=== PATIENT | female | born 1995 | race Caucasian/White ===

== ENCOUNTER 2023-01-06 17:38 | Emergency (ER) | payer OTHER, SELFPAY ==
--- NOTE | 2023-01-06 17:42 | ED_ITS ---
HPI - Ear Problem General Chief complaint: Ear Problems Stated complaint: Ear bud stuck in left ear Time Seen by Provider: 01/06/23 17:59 Source: patient and family Mode of arrival: ambulatory History of Present Illness HPI Narrative: 27-year-old female with a past medical history Autism c/o earbud stuck in left ear x 1 hour. States was wearing headphones and when pulled out 1 was stuck inside. denies pain, drainage from ear, fever, chills Complaint: foreign body Location: left ear Related Data Allergies Allergy/AdvReac Type Severity Reaction Status Date / Time No Known Allergies Allergy Verified 01/06/23 17:46 Review of Systems Review of Systems: Constitutional: No Fever, No Chills ENT/Mouth: + Ear FB, No Nasal Congestion, No sore throat, No Rhinorrhea, No Swallowing Difficulty Cardiovascular: No Chest Pain, No SOB Respiratory: No Cough, No Sputum Gastrointestinal: No Nausea, No Vomiting, No Diarrhea, No Constipation, No Abdominal pain Musculoskeletal: No joint pain, No Myalgias, No Joint Swelling Skin: No Skin Lesions, No rash Neuro: No Weakness Yes all other systems are reviewed and are negative Constitutional: Constitutional: Reports as per [facility] Past Medical History Attestation statement: The following information was validated with the patient. Source: old records reviewed Physical Exam Vital Signs: Vital Signs: Last Vital Signs Pulse 93 01/06/23 17:43 Resp 18 01/06/23 17:43 BP 128/71 01/06/23 17:43 Pulse Ox 94 01/06/23 17:43 O2 Del Method Room Air 01/06/23 17:43 BMI result Body Mass Index 37.8 Const: General: cooperative, healthy appearing and no acute distress Orientation/consciousness: patient oriented x3 Limitations: no limitations HEENT: Other: +Ear bud noted to L ear. FB removed w/o complication. +Cerumen, TM WNL Head: Yes normal to inspection, Yes atraumatic, No Marc's sign and No raccoon eyes Ears: hearing grossly normal bilaterally, external ears normal and mastoids normal General nose exam: Normal external nose present Face and sinus: Yes normal facial exam Eyes: General: appearance normal, both eyes and all related structures EOM: EOMs intact bilaterally Neck: Neck: Yes normal visual inspection and Yes no meningeal signs Resp: Effort & Inspection: normal respiratory effort and no respiratory distress Cardio: Rate: regular rate Skin: Rashes: no rashes Wounds: no wounds Neuro: General: patient oriented x3, tone normal and no meningeal signs Gait exam (Neuro): Normal gait present Extrem: General: Yes normal to inspection Procedures FB Removal Ear Location: ear canal (L) Foreign Body Suspected: other plastic TM intact pre-procedure: yes Foreign Body Removed: yes Foreign Body Removal Technique: forceps Tympanic Membrane Intact Post Procedure: Yes Patient Tolerated Procedure: well Complications: none Medical Decision Making Medical Decision Making MDM Narrative: 27-year-old female with a past medical history Autism c/o earbud stuck in left ear x 1 hour. On exam vital signs stable, NAD, nontoxic appearing with physical exam as above with appreciable foreign body/here blood to left ear. Removed without complication with Beulah clamp. TM intact without erythema or bulging. Mastoid WNL. Low suspicion for acute otitis media or externa or mastoiditis Cerumen removed with ear curette Results discussed with patient including worrisome signs and symptoms and strict return precautions, and when to return to the emergency department. They verbalized understanding and feel safe for discharge at this time. Differential Diagnosis Differential Diagnoses: The differential diagnosis associated with the presentation includes As above External Record Review External record reviewed: Inpatient record, Office record, Outpatient record, Prior outpatient labs, Prior outpatient radiology, Primary care record and Outside ED record Tests considered The following testing was considered but not selected: As above Discharge Plan Discharge Clinical Impression: Ear foreign body Patient Disposition: Home, Self-Care Instructions: Ear Foreign Body (ED) Additional Instructions: ear bud was removed from your ear Avoid putting small things in the ears You may use 50% peroxide in 50% saline soaks at home to help with ear wax Referrals: Physician,Mecca J [Physician] -
[2023-01-06 17:43] VITALS: BP 128/71; PULSE 93; RESP 18; O2SAT 94; BMI 37.8
== END 2023-01-06 18:04 | disposition home or self-care (01) ==
LOC: HO.ED 18:01
PROVIDERS: Emergency Provider Emergency Medicine; PCP Internal Medicine
DX: T16.2XXA Foreign body in left ear, initial encounter (principal)
CPT/HCPCS: 69200; 99282; 99284

== ENCOUNTER 2023-01-10 10:52 | Emergency (ER) | payer OTHER, SELFPAY ==
[2023-01-10 10:58] VITALS: BP 135/78; PULSE 85; RESP 20; TEMP 36.8; O2SAT 100; BMI 37.0
--- NOTE | 2023-01-10 11:30 | PC.NURSE ---
psych screening not done as patient was not si/hi, this was an accidental overdose by the patient who has some intellectual disabilities.
--- NOTE | 2023-01-10 11:31 | ED.OVERDOSE ---
HPI - Overdose General Chief Complaint: Overdose Stated Complaint: Medication overdose? Time Seen by Provider: 01/10/23 11:00 Source: patient, family, RN notes reviewed and old records reviewed Mode of arrival: ambulatory History of Present Illness HPI Narrative: 27-year-old female with a past medical history of developmental delay presenting to ED with parents s/p accidental overdose on her home medications this morning. Patient was at her father's for the weekend, mother packed medications in separate bottle for easy administration however patient took entire bottle this morning which included Fluoxetine 10mg x4, Aldactone 50mg x 4, Doxycycline 100mg x8, and Hydroxyzine 10mg x 2. Father suspects patient took medications all at once around 09:45. Patient has been acting at baseline since instance. Denies lethargy, nausea/vomiting, abdominal pain, diarrhea. Patient admits this is accidental/does not remember incident MD complaint: accidental overdose Onset (ago): hour(s) Related Data Allergies Allergy/AdvReac Type Severity Reaction Status Date / Time No Known Allergies Allergy Verified 01/10/23 10:58 Review of Systems Review of Systems: Constitutional: No Fever, No Chills Cardiovascular: No Chest Pain, No SOB Respiratory: No Cough Gastrointestinal: No Nausea, No Vomiting, No Diarrhea, No Constipation, No Abdominal pain ROS limited due to patients baseline mental status Yes all other systems are reviewed and are negative Constitutional: Constitutional: Reports as per [facility] Past Medical History Attestation statement: The following information was validated with the patient. Source: old records reviewed Social History Social History Alcohol intake: never Smoked in Last 30 Days: No Use of substances other than those prescribed or required for medical reasons: No Advance Directives: No Advance Directives Information Provided: Yes Patient : No Physical Exam Vital Signs: Vital Signs: Last Vital Signs Temp 98.0 F 01/10/23 15:40 Pulse 74 01/10/23 15:40 Resp 16 01/10/23 15:40 BP 122/66 01/10/23 15:40 Pulse Ox 98 01/10/23 15:40 O2 Del Method Room Air 01/10/23 15:40 BMI result Body Mass Index 37.0 Const: General: cooperative, healthy appearing, no acute distress, alert and awake Limitations: no limitations HEENT: Head: Yes normal to inspection and Yes atraumatic Ears: hearing grossly normal bilaterally General nose exam: Normal external nose present Face and sinus: Yes normal facial exam Eyes: General: appearance normal, both eyes and all related structures EOM: EOMs intact bilaterally Neck: Neck: Yes normal visual inspection and Yes no meningeal signs Resp: Effort & Inspection: normal respiratory effort and no respiratory distress Auscultation: clear to auscultation bilaterally, no crackles, no rales, no rhonchi and no wheezes Cardio: Rate: regular rate Heart sounds: S1 normal heart sound present and S2 normal heart sound present GI: Inspection: Yes normal to inspection Palpation (GI): Soft to palpation, nontender, no guarding and not rigid Skin: Rashes: no rashes Wounds: no wounds Neuro: General: tone normal, moves all extremities and no meningeal signs Extrem: General: Yes normal to inspection Course Course Course Narrative: -1543--labs unremarkable. UA contaminated. Salicylate/acetaminophen and tox screen negative 1550 > patient has remained asymptomatic since ED arrival. No increased lethargy, nausea or vomiting. Discussed with parents to hold medications for the remainder of the day including tomorrow and call PCP tomorrow morning for close follow-up/inform them of ED visit Discussed worrisome signs and symptoms and strict return precautions including increased lethargy, nausea/vomiting, or change in mental status return to the ED Results discussed with patient including worrisome signs and symptoms and strict return precautions, and when to return to the emergency department. They verbalized understanding and feel safe for discharge at this time. Medical Decision Making Medical Decision Making [facility] Narrative: 27-year-old female with a past medical history of developmental delay presenting to ED with parents s/p accidental overdose on her home medications this morning. On exam vital signs stable, NAD, nontoxic appearing, no respiratory distress, abdomen soft/nontender, awake and alert, interactive. Concern for accidental overdose. Will monitor for electrolyte abnormalities and mental status change. Low suspicion for SI attempt Plan: EKG, labs, UA, drug screen, poison consult Please refer to course for remaining clinical decision making, interpretation of labs/imaging results, and discussions with consultants and/or family members. Differential Diagnosis Differential Diagnoses: The differential diagnosis associated with the presentation includes As above Admission/Observation Consideration of admission/observation: Escalation of care including admission/observation considered Consult Healthcare Provider Management of the patient was discussed with: Pipe Smoking Machine Operator (Consulted poison Control who recommended EKG, labs, and observation for 4-6 hrs) Lab Data MDM Lab Attestation statement: I reviewed the patient's lab results. 01/10/23 11:45 01/10/23 12:32 Labs: Lab Results 01/10/23 01/10/23 01/10/23 Range/Units 11:45 11:45 11:45 WBC 8.7 (4.8-10.8) X10*3/uL RBC 4.43 (4.20-5.50) X10*6/uL Hgb 14.0 (12.0-16.0) g/dl Hct 39.2 (37.0-47.0) % MCV 88.5 (80.0-98.0) fL MCH 31.6 (27.0-33.0) pg MCHC 35.7 H (31.0-35.0) g/dl RDW 11.9 (11.0-16.0) % Plt Count 256 (160-400) X10*3/uL MPV 10.8 (9.4-12.3) fL Immature Gran % (Auto) 0.3 (0.0-0.4) % Neut % (Auto) 57.3 (45-73) % Lymph % (Auto) 33.0 (20-40) % Riley % (Auto) 7.0 (2-11) % Eos % (Auto) 2.1 (0-4) % Baso % (Auto) 0.3 (0-2) % Lymph # (Auto) 2.9 (1.2-4.9) X10*3/uL Riley # (Auto) 0.6 (0.1-1.2) X10*3/uL Eos # (Auto) 0.2 (0.0-0.4) X10*3/uL Baso # (Auto) 0.0 (0.0-0.2) X10*3/uL Abs Immat Gran (auto) 0.03 (0.00-0.03) X10*3/uL Absolute Neuts (auto) 5.0 (2.0-8.3) x10*3/uL Absolute Nucleated RBC 0.000 (0.0-0.012) X10*3/uL Nucleated RBC % (auto) 0.0 (0.0-0.2) /100WBC PT 11.9 (10.0-13.1) SEC INR 1.0 (0.9-1.1) Sodium (135-145) mmol/L Potassium (3.3-5.1) mmol/L Chloride (96-108) mmol/L Carbon Dioxide (22-29) mmol/L Anion Gap (12-20) BUN (9-16) mg/dL Creatinine (0.5-1.4) mg/dL Estim Creat Clear Calc Estimated GFR Random Glucose (60-115) mg/dL Calcium (8.4-10.2) mg/dL Magnesium (1.6-2.6) mg/dL Total Bilirubin (0.0-1.0) mg/dL Direct Bilirubin (0.0-0.5) mg/dL AST (5-31) U/L ALT (0-31) U/L Alkaline Phosphatase (39-117) U/L Total Protein (6.5-8.0) g/dL Albumin (3.5-5.0) g/dL Lipase (8-78) U/L Urine Color Urine Appearance Urine pH (5.0-9.0) Ur Specific [place] (1.005-1.025) Urine Protein (Neg-Trace) mg/dL Urine Glucose (UA) (Negative) mg/dL Urine Ketones (Negative) mg/dL Urine Blood (Negative) Urine Nitrite (Negative) Ur Leukocyte Esterase (Negative) Urine RBC (0-2) /HPF Urine WBC (0-5) /HPF Ur Squamous Epith Cells (0-2) /HPF Urine Bacteria (None Seen) Hyaline Casts (0-2) /LPF Salicylates < 5.0 L (15-30) mg/dL Urine Opiates Screen (Not Detect) Urine Fentanyl Screen (Not Detect) Acetaminophen < 17 (<30) mcg/mL Ur Barbiturates Screen (Not Detect) Ur Phencyclidine Scrn (Not Detect) Ur Amphetamines Screen (Not Detect) U Benzodiazepines Scrn (Not Detect) Urine Cocaine Screen (Not Detect) U Marijuana (THC) Screen (Not Detect) 01/10/23 01/10/23 01/10/23 Range/Units 12:32 13:51 13:51 WBC (4.8-10.8) X10*3/uL RBC (4.20-5.50) X10*6/uL Hgb (12.0-16.0) g/dl Hct (37.0-47.0) % MCV (80.0-98.0) fL MCH (27.0-33.0) pg MCHC (31.0-35.0) g/dl RDW (11.0-16.0) % Plt Count (160-400) X10*3/uL MPV (9.4-12.3) fL Immature Gran % (Auto) (0.0-0.4) % Neut % (Auto) (45-73) % Lymph % (Auto) (20-40) % Riley % (Auto) (2-11) % Eos % (Auto) (0-4) % Baso % (Auto) (0-2) % Lymph # (Auto) (1.2-4.9) X10*3/uL Riley # (Auto) (0.1-1.2) X10*3/uL Eos # (Auto) (0.0-0.4) X10*3/uL Baso # (Auto) (0.0-0.2) X10*3/uL Abs Immat Gran (auto) (0.00-0.03) X10*3/uL Absolute Neuts (auto) (2.0-8.3) x10*3/uL Absolute Nucleated RBC (0.0-0.012) X10*3/uL Nucleated RBC % (auto) (0.0-0.2) /100WBC PT (10.0-13.1) SEC INR (0.9-1.1) Sodium 138 (135-145) mmol/L Potassium 4.3 (3.3-5.1) mmol/L Chloride 104 (96-108) mmol/L Carbon Dioxide 26 (22-29) mmol/L Anion Gap 12 (12-20) BUN 13 (9-16) mg/dL Creatinine 0.75 (0.5-1.4) mg/dL Estim Creat Clear Calc 135.0 Estimated GFR > 60 Random Glucose 98 (60-115) mg/dL Calcium 9.7 (8.4-10.2) mg/dL Magnesium 1.9 (1.6-2.6) mg/dL Total Bilirubin 1.0 (0.0-1.0) mg/dL Direct Bilirubin 0.2 (0.0-0.5) mg/dL AST 16 (5-31) U/L ALT 27 (0-31) U/L Alkaline Phosphatase 35 L (39-117) U/L Total Protein 7.4 (6.5-8.0) g/dL Albumin 3.9 (3.5-5.0) g/dL Lipase 13 (8-78) U/L Urine Color Dark Yellow Urine Appearance Cloudy Urine pH 6.0 (5.0-9.0) Ur Specific [place] >= 1.030 H (1.005-1.025) Urine Protein 300 (3+) H (Neg-Trace) mg/dL Urine Glucose (UA) Negative (Negative) mg/dL Urine Ketones Trace (Negative) mg/dL Urine Blood Negative (Negative) Urine Nitrite Negative (Negative) Ur Leukocyte Esterase Small (1+) H (Negative) Urine RBC 0-2 (0-2) /HPF Urine WBC 11-20 H (0-5) /HPF Ur Squamous Epith Cells >20 (0-2) /HPF Urine Bacteria Trace (None Seen) Hyaline Casts 6-10 (0-2) /LPF Salicylates (15-30) mg/dL Urine Opiates Screen Not Detected (Not Detect) Urine Fentanyl Screen Not Detected (Not Detect) Acetaminophen (<30) mcg/mL Ur Barbiturates Screen Not Detected (Not Detect) Ur Phencyclidine Scrn Not Detected (Not Detect) Ur Amphetamines Screen Not Detected (Not Detect) U Benzodiazepines Scrn Not Detected (Not Detect) Urine Cocaine Screen Not Detected (Not Detect) U Marijuana (THC) Screen Not Detected (Not Detect) Independent Interpretation I performed an independent interpretation of an: EKG (EKG normal sinus rhythm at a rate of 73. TN interval 148. QRS 80. QTC 389. Q-wave in lead 3, no STEMI) Independent Historian Clinical information obtained from an independent historian. History obtained from or confirmed by: Parent External Record Review External record reviewed: Inpatient record, Office record, Outpatient record, Prior outpatient labs, Prior outpatient radiology, Primary care record and Outside ED record Tests considered The following testing was considered but not selected: As above Chronic Conditions Patient?s care impacted by: Other (Developmental delay) Discharge Plan Discharge Clinical Impression: Accidental medication overdose Patient Disposition: Still a Patient
[2023-01-10 11:34] VITALS: BP 138/69; PULSE 87; RESP 21; TEMP 36.6; O2SAT 97
--- NOTE | 2023-01-10 11:49 | PC.NURSE ---
pt alert and oriented, came in for accidental ingestion of too many medications at home, vss, nsr on the cardiac nurse specialist, 20g IV placed in the left AC w/o complications, labs sent, urine cup placed bedside awaiting for urine sample, call amaya placed within reach, will continue to monitor.
--- NOTE | 2023-01-10 11:59 | PC.NURSE ---
provider called poison control to obtain instruction towards treatment for the pt
[2023-01-10 13:42] VITALS: BP 101/57; PULSE 76; RESP 19; TEMP 36.7; O2SAT 96
--- NOTE | 2023-01-10 14:01 | PC.NURSE ---
repeat ekg performed
[2023-01-10 15:40] VITALS: BP 122/66; PULSE 74; RESP 16; TEMP 36.7; O2SAT 98
--- NOTE | 2023-01-10 15:41 | MHC.EDTECH ---
THIS PCT JUST ASSUMED CARE OF PATIENT ,VITALS SIGN TAKEN AND IS STABLE ,PT AWAKE IN BED WATCHING TELEVISION ,PT PARENTS AT BEDSIDE .
== END 2023-01-10 16:33 | disposition home or self-care (01) ==
PROVIDERS: Emergency Provider Emergency Medicine Emergency Medical Services; PCP Internal Medicine
DX: T50.991A Poisoning by other drugs, medicaments and biological substances, accidental (unintentional), initial encounter (principal); Y92.9 Unspecified place or not applicable; R62.50 Unspecified lack of expected normal physiological development in childhood
CPT/HCPCS: 36415; 80048; 80076; 80143; 80179; 80307; 81001; 81003; 83690; 83735; 85025; 85610; 87086; 93005; 99284; 99285

== ENCOUNTER 2024-10-06 16:21 | Emergency (ER) | payer OTHER, SELFPAY ==
[2024-10-06 16:48] VITALS: BP 132/78; PULSE 114; RESP 16; TEMP 36.4; O2SAT 98; BMI 40.0
[2024-10-06 17:55] LABS: IDNOW Serial# 58CA691E; Strep A Nucleic Acid Negative (Negative)
[2024-10-06 18:08] LABS: Influenza A PCR NEGATIVE (Negative); Influenza B PCR NEGATIVE (Negative); Resp Syncy Virus RNA Qual PCR NEGATIVE (Negative); SARS COV2 PCR INHOUSE NEGATIVE (Negative)
--- NOTE | 2024-10-06 19:45 | ED.URI ---
HPI - URI/Sore Throat General Chief Complaint: Upper Respiratory Symptoms Stated Complaint: Flu sypmtoms Time Seen by Provider: 10/06/24 19:36 Source: patient and family ( patient's mother) Mode of arrival: ambulatory Limitations: no limitations History of Present Illness ED Provider: Dr. Shivani Mosley HPI Narrative: Patient comes to the emergency room accompanied by her mother. Patient is poor historian, patient is in the autism spectrum. Patient states that she has been having cough, runny nose and sore throat. No reported fever per patient's mother. No chest pain or shortness of breath. Seems that earlier today patient had a bit of abdominal pain but now self-resolved. Patient denies nausea vomiting or diarrhea. Related Data Previous Rx's ?Medication ?Instructions ?Recorded acetaminophen 500 mg tablet 500 mg PO Q6H PRN fever or pain 10/06/24 #20 tabs ibuprofen 600 mg tablet 600 mg PO Q8H PRN fever or pain 10/06/24 #20 tabs Allergies Allergy/AdvReac Type Severity Reaction Status Date / Time No Known Allergies Allergy Verified 10/06/24 16:51 Review of Systems Review of Systems: Constitutional : No Weight loss, No Fever, No Chills, No Night Sweats, No Fatigue, No Malaise ENT/Mouth : No Hearing loss, No Ear Pain, No Nasal Congestion, No Sinus Pain, No Hoarseness, complaining of mild sore throat, No Rhinorrhea, No Swallowing Difficulty Eyes: No Eye Pain, No Swelling, No Redness, No Foreign Body, No Discharge, No Vision Changes Cardiovascular : No Chest Pain, No SOB, No Dyspnea on Exertion, No Orthopnea, No Edema, No Palpitations Respiratory : Complaining of mild cough, runny nose Gastrointestinal : No Nausea, No Vomiting, No Diarrhea, No Constipation, No abdominal Pain, No Hematochezia, No Melena Genitourinary : no irregular bleeding, No Dysuria, No Urinary Frequency, No Hematuria, No Urinary Incontinence, No Urgency, No Flank Pain, No Urinary Flow Changes, No Hesitancy Musculoskeletal : No joint pain, No Myalgias, No Joint Swelling Skin : No Skin Lesions, No rash Neuro : No Weakness, No Numbness, No Paresthesias, No Loss of Consciousness, No Dizziness, No Headache Psych : No Anxiety/Panic, No Depression, No SI/HI/AH/VH, No Social Issues, Heme/Lymph: No Bruising, No Bleeding,No Lymphadenopathy Endocrine : No Polyuria, No Polydipsia, No Temperature Intolerance [facility] Past Medical History Medical History (Updated 10/06/24 @ 19:46 by Shivani Mosley MD) Autism spectrum Social History Social History Alcohol intake: never Advance Directives: No Advance Directives Information Provided: No Physical Exam Vital Signs: Vital Signs: Last Vital Signs Temp 97.6 F 10/06/24 16:48 Pulse 114 H 10/06/24 16:48 Resp 16 10/06/24 16:48 BP 132/78 10/06/24 16:48 Pulse Ox 98 10/06/24 16:48 O2 Del Method Room Air 10/06/24 16:48 BMI result Body Mass Index 40.0 Const: Other: Appearance: Alert. Oriented X3. No acute distress. well-appearing Eyes: Pupils equal, round and reactive to light. ENT: Pharynx normal , no erythema, no visualized abscesses, no exudates. tympanic membranes within normal limits, no erythema or discharge. Neck: Normal inspection. Neck supple. No lymph nodes noted. No crepitus CVS: Normal heart rate and rhythm. Pulses normal. Normal S1 and S2 Respiratory: No respiratory distress. Breath sounds normal. No Wheezing. No rales Abdomen: Soft and nontender. No rigidity. No distention. Skin: Skin warm and dry. Normal skin color. Normal skin turgor. Extremities: No lower extremity edema. No Lacerations. No Rash Neuro: Oriented X 3. No motor deficit. No sensory deficit. Moving all extremities. No slurred speech. CN 2 through 12 grossly intact Psych: calm, cooperative, normal affect Medical Decision Making Medical Decision Making MDM Narrative: My interpretation of labs: Patient tested negative for influenza a and B, RSV, COVID and strep discussed with the patient that she likely has a viral URI. Discussed with the patient's mother to alternate Tylenol and Motrin p.r.n. symptoms. Lab Data Labs: Lab Results 10/06/24 Range/Units 17:24 Influenza Type A (PCR) NEGATIVE (Negative) Influenza Type B (PCR) NEGATIVE (Negative) RSV RNA Qual (PCR) NEGATIVE (Negative) SARS-CoV-2 RNA (RT-PCR) NEGATIVE (Negative) S. pyogenes GrpA ROB Negative (Negative) Discharge Plan Discharge Clinical Impression: URI due to influenza Patient Disposition: Home, Self-Care Instructions: Viral Syndrome (ED) Prescriptions: New ibuprofen 600 mg tablet 600 mg PO Q8H PRN (Reason: fever or pain) Qty: 20 0RF acetaminophen 500 mg tablet 500 mg PO Q6H PRN (Reason: fever or pain) Qty: 20 0RF Print Language: Korean
[2024-10-06 19:51] VITALS: BP 132/78; PULSE 114; RESP 16; TEMP 36.4; O2SAT 98
--- NOTE | 2024-10-06 19:51 | PC.NURSE ---
t/w attempted to discharge pt- pt was not in exam room
== END 2024-10-06 19:51 | disposition home or self-care (01) ==
PROVIDERS: Emergency Provider Emergency Medicine; PCP Internal Medicine
DX: J06.9 Acute upper respiratory infection, unspecified (principal); R05.9 Cough, unspecified; Z03.818 Encounter for observation for suspected exposure to other biological agents ruled out
CPT/HCPCS: 0241U; 87651; 99282; 99283

== ENCOUNTER 2024-12-28 09:58 | Outpatient (REF) | payer OTHER, SELFPAY ==
--- OUTSIDE RECORDS SUMMARY | 2024-12-29 10:14 | XMS_ITS | Encounter Summary ---
Author Organization [facility] Address [address] [place] [address] Care Team Providers Care Computational Chemist Name Role Phone Danielle Cazares MD Primary Care Prov ider Reason for Visit * Reason Onset Date Comments Advice Only 12/28/2024 Encounter Details Date Type Department Care Team ([facility] st Contact Info) Description 12/28/2024 Telephone Adult Medicine [address] [phone] Danielle Cazares MD [address] [place] [phone] Advice Only Social History Tobacco Use Types [...] to urgent care near her, number to [facility] walk in in [place] given -advised to maintain hydration , especially [...] a message to call the office at [phone] * Cruz Hilario - 12/28/2024 9:40 AM [...] 8:15 AM EDT Appointment Radiology Department - [address] [phone] 01/05/2025 3:00 PM EDT Office Visit Adult Medicine [facility] - [address] [phone] Danielle Cazares MD [address] [place] [address] documented as of this encounter Visit Diagnoses Not on filedocumented in this encounter Care Teams Computational Chemist Relationship Specialty Start Date End Date Danielle Cazares MD [address] [place] [address] PCP - General Internal Medicine 09/13/24 documented as of this encounter
[2024-12-29 11:12] LABS: Influenza A PCR NEGATIVE (Negative); Influenza B PCR NEGATIVE (Negative); Resp Syncy Virus RNA Qual PCR NEGATIVE (Negative); SARS COV2 PCR INHOUSE NEGATIVE (Negative)
== END 2024-12-28 09:59 | disposition home or self-care (01) ==
LOC: HO.LNP 09:58
PROVIDERS: Visit Provider Nurse Practitioner Family
DX: J06.9 Acute upper respiratory infection, unspecified (principal)
CPT/HCPCS: 0241U

== ENCOUNTER 2024-12-28 14:14 | Outpatient (AMB) | payer OTHER, SELFPAY ==
[2024-12-28 14:46] VITALS: BP 116/78; PULSE 108; TEMP 36.8; O2SAT 98; BMI 39.0
--- NOTE | 2024-12-28 14:46 | MHC.OFFWIV ---
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 Intake Note: Patiet presents with cough wheezing and chest congestion times 4 days Patient Tobacco Use Status: Never used Tobacco Baseball Scout Required: No Allergies No Known Allergies Allergy (Verified 12/28/24 14:52) Medication List - Last Reconciled 12/28/24 by Claudette Gomez NP albuterol sulfate 90 mcg/actuation 2 puffs inhalation Q4-6H PRN 10 days azithromycin 500 mg PO DAILY 3 days fluoxetine 10 mg PO DAILY medroxyprogesterone 10 mg PO DAILY prednisone 50 mg PO DAILY 5 days Do you need a note to return to daycare/school/sports/work: Yes HPI HPI Comments History of Present Illness Details 29 y/o Female patient who presents to the walk in clinic with c/o URI symptoms for 4 days now. Reports Cough, chest/nasal congestion and wheezing. She was in contact with Dad with similar symptoms. Denies fevers, chills, nausea or vomiting. [facility] Medical History (Updated 12/28/24 @ 15:30 by Claudette Gomez NP) Wheezing on auscultation Cough Autism spectrum Social History Alcohol intake: never Patient Tobacco Use Status: Never used Tobacco Review of Systems Const All systems reviewed & are unremarkable except as noted in HPI and below Physical Exam Vital Signs: Last Vital Signs Temp 98.2 F 12/28/24 14:46 Pulse 108 H 12/28/24 14:46 BP 116/78 12/28/24 14:46 Pulse Ox 98 12/28/24 14:46 Oxygen Delivery Method Room Air 12/28/24 14:46 BMI result Body Mass Index 39.0 Const General: no acute distress Nutritional Appearance: obese Limitations: behavioral limitations Resp Effort & Inspection: normal respiratory effort and able to speak in complete sentences Auscultation: no crackles, no rales and wheezes Cardio Heart sounds: S1 normal heart sound present and S2 normal heart sound present Neuro General: gait normal and moves all extremities Psych Affect: normal affect Office Procedures Nebulizer Treatment Nebulizer Treatment 15582-Njrvyiqrf/MDI RX initial, or Nebulizer Subsequent Treatment Office Meds ipratropium 0.5 mg-albuterol 3 mg (2.5 mg base)/3 mL nebulization soln Performing Provider: Claudette Gomez NP [facility] Administered by: Claudette Gomez NP on 12/28/24 15:28 Dose Route Admin Location Dispensed Lot Number Expiration Date [facility] Passenger Car Upholsterer Apprentice 3 mL inhalation 3 mL 09/06/25 [id number] AHP Assessment & Plan Assessment & Plan (1) Cough: Code(s): R05.9 - Cough, unspecified Qualifiers: Cough type: subacute Qualified Code(s): R05.2 - Subacute cough Plan: Ordered Neb in Office Ordered Zpack and prednisone OTC cough medicine Ordere rescue inhaler PRN Ordered SARs (2) Wheezing on auscultation: Code(s): R06.2 - Wheezing Plan: Ordered Neb in Office Ordered Zpack and prednisone OTC cough medicine Ordere rescue inhaler PRN Orders: Orders AMB Nebulizer Treatment Today R06.2 - Wheezing SARS-CoV2/FLU/RSV Today J06.9 - Acute upper respiratory infection, unspecified Medications: New albuterol sulfate 90 mcg/actuation 2 puffs inhalation Q4-6H PRN 6.7 grams 0RF shortness of breath or wheezing 10 days R06.2 - Wheezing prednisone 50 mg PO DAILY 5 tabs 0RF 5 days R06.2 - Wheezing azithromycin 500 mg PO DAILY 3 tabs 0RF 3 days R05.9 - Cough, unspecified, R06.2 - Wheezing Discontinued acetaminophen Discontinued Reason: Patient no longer taking 500 mg PO Q6H PRN 20 tabs 0RF fever or pain ibuprofen Discontinued Reason: Patient no longer taking 600 mg PO Q8H PRN 20 tabs 0RF fever or pain Coding Level of Care Code New Pt Level 4 (44752) Diagnoses Subacute cough R05.2 Cough type: subacute Wheezing on auscultation R06.2 CPT Codes Nebulizer Treatment - Nebulizer Treatment, initial or subsequent: [id number]/MDI RX initial, or Nebulizer Subsequent Treatment ([id number]) Time Spent (min) 20
--- OUTSIDE RECORDS SUMMARY | 2024-12-28 15:30 | XMS_ITS | Encounter Summary ---
Author Organization [facility] Address [address] [place] [address] Care Team Providers Care Graphic Art Technician Name Role Phone Danielle Cazares MD Primary Care Prov ider Reason for Visit * Reason Onset Date Comments Advice Only 12/28/2024 Encounter Details Date Type Department Care Team ([facility] st Contact Info) Description 12/28/2024 Telephone Adult Medicine [address] [phone] Danielle Cazares MD [address] [place] [id number] Advice Only Social History Tobacco Use Types Packs/Day Years Used Date Smoking Tobacco: Never Smokeless Tobacco: Never Alcohol Use Standard Drinks/Week Comments No 0 (1 standard drink = 0.6 oz pur e alcohol) Comments No Sex and Gender Information Value Date Recorded Sex Assigned at Not on file Legal Sex Female 11:14 AM EST Gender Identity Not on file Sexual Orientation Not on file documented as of this encounter Progress Notes * Briana Daniels RN - 12/28/2024 1:35 PM EDT Spoke with mother she states her daughter is having cold like symptoms with stuffy nose that seemedto resolve but now has chest congestion , wet cough but swallows it , doesn't know the color . No fever no sob at present time but does become fatigued with exertion. she treated her with sudafed as directed by pharmacy staff pt. Is on Paxil and shows no interaction with the sudafed. She is now having wheezing intermittently .no apts available in office, offered urgent care apt. Mother states it is too far . I get lost very easily . I advised Take her to urgent care near her, number to [facility] in in [place] given -advised to maintain hydration , especially water to loosen secretions, and if at any time she develops, fever ,chills, sob, cp or weakness to be evaluated in the ER. She agrees. Also advised if she is unable to obtain an apt. There To call back and I can give her apt. In out urgent care * Gissel Carreon - 12/28/2024 12:48 PM EDT PATIENTS MOM CALLING BACK * Briana Daniels RN - 12/28/2024 12:22 PM EDT Called pt.'s number , no answer left message to call office , it is the same number listed for mother as well * Sally Eaton - 12/28/2024 10:53 AM EDT Patient mother Laura returning phone call * Briana Daniels RN - 12/28/2024 10:26 AM EDT Called number listed , no answer, left a message to call the office at [phone] * Cruz Hilario - 12/28/2024 9:40 AM EDT The patient is calling for advice in regards to medication she is taking for a cold. She states that she is having congestion and would like to talk to a nurse to just double check to see if there isno affects towards it and safety. documented in this encounter Plan of Treatment Upcoming Encounters Date Type Department Care Team (Late st Contact Info) Description 01/03/2025 8:15 AM EDT Appointment Radiology Department - [address] [phone] 01/05/2025 3:00 PM EDT Office Visit Adult Medicine East - [address] [phone] Danielle Cazares MD [address] [place] [address] documented as of this encounter Visit Diagnoses Not on filedocumented in this encounter Care Teams Graphic Art Technician Relationship Specialty Start Date End Date Danielle Cazares MD [address] [place] [address] PCP - General Internal Medicine 09/13/24 documented as of this encounter
== END 2024-12-28 16:05 | disposition home or self-care (01) ==
PROVIDERS: PCP Internal Medicine; Visit Provider Nurse Practitioner Family
DX: R05.2 Subacute cough (principal); R06.2 Wheezing

== ENCOUNTER → 2024-12-28 14:14 | Outpatient (BNVA) | payer OTHER, SELFPAY | PROVIDERS: PCP Internal Medicine; Visit Provider Nurse Practitioner Family | DX: R05.2 Subacute cough (principal); R06.2 Wheezing; R09.89 Other specified symptoms and signs involving the circulatory and respiratory systems; J06.9 Acute upper respiratory infection, unspecified | CPT/HCPCS: 94640; 99202 ==

== ENCOUNTER 2025-01-01 11:56 | Outpatient (REF) | payer OTHER, SELFPAY ==
--- NOTE | ~2025-01-01 | XR_ITS ---
EXAMINATION: XR CHEST CLINICAL INFORMATION: R06.2 - Wheezing COMPARISON: None available. TECHNIQUE: 2 views of the chest were obtained. FINDINGS: No consolidation, pleural fissure pneumothorax. No hyperinflation. Cardiomediastinal silhouette size is normal. Patient's large body habitus/obesity. Osseous structures are intact. XR/XR chest 2V IMPRESSION: No acute airspace disease. Electronically signed by: Collins Marquez MD 01/01/2025 01:35 PM EDT
== END 2025-01-01 11:57 | disposition home or self-care (01) ==
LOC: HO.HMGCX 11:56
PROVIDERS: PCP Internal Medicine; Visit Provider Nurse Practitioner Family
DX: R05.2 Subacute cough (principal); R06.2 Wheezing
CPT/HCPCS: 71046; 99212

== ENCOUNTER 2025-01-01 11:56 | Outpatient (AMB) | payer OTHER, SELFPAY ==
[2025-01-01 12:35] VITALS: BP 126/88; PULSE 84; TEMP 36.9; O2SAT 96; BMI 39.5
--- NOTE | 2025-01-01 12:35 | AM.OFFWIN_ITS ---
Intake Vital Signs 01/01/25 12:35 Height 5 ft 4 in Weight 230 lb BMI 39.5 BP 126/88 Blood Pressure Location Lt brachial Position Sitting Pulse 84 Pulse Source Pulse Oximeter Temp 98.4 F Temp Source Oral Pulse Oximetry (%) 96 Oxygen Delivery Method Room Air Intake Visit Reasons: EP-wheezing and running nose Patient Tobacco Use Status: Never used Tobacco Allergies No Known Allergies Allergy (Verified 01/01/25 12:47) Medication List - Last Reconciled 01/01/25 by Claudette Gomez NP albuterol sulfate 90 mcg/actuation 2 puffs inhalation Q4-6H PRN 10 days fluoxetine 10 mg PO DAILY medroxyprogesterone 10 mg PO DAILY prednisone 20 mg PO DAILY Do you need a note to return to daycare/school/sports/work: Yes HPI HPI Comments History of Present Illness Details 29 y/o Female patient with Mental disabi lity presents to the walk in clinic with her mother with c/o SOB, Wheezing and Cough. She was recently seen here last (12/28) for similar concern and was treated with Z-pack and Prednisone. Mom reports that Patient had temporary relief but continued to wheeze and SOB. She completed all prescribed medications. [facility] Medical History (Updated 12/28/24 @ 15:30 by Claudette Gomez NP) Wheezing on auscultation Cough Autism spectrum Social History Alcohol intake: never Patient Tobacco Use Status: Never used Tobacco Review of Systems Const All systems reviewed & are unremarkable except as noted in HPI and below Physical Exam Vital Signs: Last Vital Signs Temp 98.4 F 01/01/25 12:35 Pulse 84 01/01/25 12:35 BP 126/88 01/01/25 12:35 Pulse Ox 96 01/01/25 12:35 Oxygen Delivery Method Room Air 01/01/25 12:35 BMI result Body Mass Index 39.5 Const General: no acute distress Nutritional Appearance: obese Orientation/consciousness: patient oriented x3 Resp Effort & Inspection: audible wheezes and Actively coughing Auscultation: no crackles, no rales, rhonchi and wheezes scattered wheezes Cardio Heart sounds: S1 normal heart sound present and S2 normal heart sound present Neuro General: patient oriented x3, gait normal and moves all extremities Psych Affect: normal affect Assessment & Plan Assessment & Plan (1) Cough: Code(s): R05.9 - Cough, unspecified Qualifiers: Cough type: subacute Qualified Code(s): R05.2 - Subacute cough Plan: Ordered Chest Xray Ordered additional Prednisone Advised to use Albuterol inhaler Q4-6 hours (2) Wheezing on auscultation: Code(s): R06.2 - Wheezing Plan: Ordered Chest Xray Ordered additional Prednisone Advised to use Albuterol inhaler Q4-6 hours Orders: Orders XR chest 2V Today R05.2 - Subacute cough, R06.2 - Wheezing Medications: New prednisone 20 mg PO DAILY 10 tabs 0RF R05.2 - Subacute cough, R06.2 - Wheezing Coding Level of Care Code Est Pt Level 4 (55254) Diagnoses Subacute cough R05.2 Cough type: subacute Wheezing on auscultation R06.2 Time Spent (min) 20
--- OUTSIDE RECORDS SUMMARY | 2025-01-01 13:33 | XMS_ITS | Encounter Summary ---
Author Organization [facility] Address [address] [place] [address] Care Team Providers Care Senior Java Ui Developer Name Role Phone Danielle Cazares MD Primary Care Prov ider Reason for Visit * Reason Onset Date Comments Advice Only 12/28/2024 Encounter Details Date Type Department Care Team ([facility] st Contact Info) Description 12/28/2024 Telephone Adult Medicine [address] [phone] Danielle Cazares MD [address] [place] [phone] Advice Only Social History Tobacco Use Types [...] to urgent care near her, number to [facility] walk in in [place] given -advised to maintain hydration , especially [...] a message to call the office at [phone] * Cruz Hilario - 12/28/2024 9:40 AM [...] 8:15 AM EDT Appointment Radiology Department - [address] [phone] 01/03/2025 3:00 PM EDT Office Visit Adult Medicine [facility] - [address] [phone] Danielle Cazares MD [address] [place] [address] documented as of this encounter Visit Diagnoses Not on filedocumented in this encounter Care Teams Senior Java Ui Developer Relationship Specialty Start Date End Date Danielle Cazares MD [address] [place] [address] PCP - General Internal Medicine 09/13/24 documented as of this encounter
== END 2025-01-01 13:29 | disposition home or self-care (01) ==
PROVIDERS: PCP Internal Medicine; Visit Provider Nurse Practitioner Family
DX: R05.2 Subacute cough (principal); R06.2 Wheezing

== ENCOUNTER → 2025-01-01 13:24 | Outpatient (BNV) | payer OTHER, SELFPAY | PROVIDERS: PCP Internal Medicine; Visit Provider Radiology Diagnostic Radiology | DX: R06.2 Wheezing (principal) | CPT/HCPCS: 71046 ==

== ENCOUNTER 2025-05-17 14:40 | Emergency (ER) | payer OTHER, SELFPAY ==
[2025-05-17 14:54] VITALS: BP 133/73; PULSE 98; RESP 18; TEMP 36.8; O2SAT 100; BMI 42.9
--- NOTE | 2025-05-17 14:54 | ED_ITS ---
HPI - General Adult General Chief complaint: Skin/Abscess/Foreign Body Stated complaint: cysts underneath breasts Time Seen by Provider: 05/17/25 16:18 History of Present Illness ED Provider: Luis Banuelos MD HPI narrative: 29-year-old female brought in by mother. The patient has a history of obesity, PCOS, intellectual disability. Mother noted ?cysts? for the past 3-5 days under the left breast. No fever no chills no drainage no previous or frequent abscesses reported. Related Data Home Medications ?Medication ?Instructions ?Recorded ?Confirmed fluoxetine 10 mg capsule 10 mg PO DAILY 12/28/2412/11 medroxyprogesterone 10 mg tablet 10 mg PO DAILY 01/01/25 Previous Rx's ?Medication ?Instructions ?Recorded albuterol sulfate 90 mcg/actuation 2 puff inhalation Q 4-6H PRN 12/28/24 aerosol inhaler shortness of breath or wheez ing 10 days #6.7 grams prednisone 20 mg tablet 20 mg PO DAILY #10 tabs 12/11 10/03 cefadroxil 500 mg capsule 500 mg PO BID 7 days #14 cap s 05/17/25 sulfamethoxazole 800 1 tab PO Q12H 7 days #14 tab s 05/17/25 mg-trimethoprim 160 mg tablet (Bactrim DS) Allergies Allergy/AdvReac Type Severity Reaction Status Date / Time No Known Allergies Allergy Verified 05/18/25 16:57 [facility] Past Medical History Medical History Wheezing on auscultation Cough Autism spectrum Social History Social History Alcohol intake: never Patient Tobacco Use Status: Never used Tobacco Advance Directives: No Advance Directives Information Provided: Yes Physical Exam ED Exam Exam: GENERAL: Well appearing. No apparent distress. Alert. Not ill or toxic HEAD/NECK: No visual trauma. EYES: Normal to inspection. No conjunctival erythema. No discharge. ENMT: Hearing grossly normal. External nose normal. RESPIRATORY: Respiratory effort normal. CARDIOVASCULAR: Additional details (Grossly well perfused). SKIN: No jaundice. Left breast with moderate erythema inferomedial to the nipple see the photo. Examination is repeatedly performed with plater production including mother and nurse at the bedside, female. NEUROLOGICAL: Alert. Moving all extremities x4. Additional details (No gross motor deficits. Normal tone. ). PSYCHIATRIC: Alert. Appearance appropriate for situation. Vital Signs: Vital Signs - 24 hr 05/17/25 14:54 05/17/25 16:24 Temperature 98.2 F 98.3 F Pulse Rate 98 101 H Respiratory Rate 18 16 Blood Pressure 133/73 124/76 Pulse Oximetry 100 99 Oxygen Delivery Method Room Air Room Air BMI result Body Mass Index 42.9 Course Course Course Narrative: Rapid medical examination performed in triage by Brenda Jimenez PA-C: Patient is a 29 year old assigned female at presenting to the emergency department with bilateral below breast abscesses. Patient's mother states that the patient has had bilateral below breast abscesses. Patient is special needs. Detailed physical exam and review of systems are deferred to the manager talent management. Labs ordered. Patient placed back in the waiting room pending room availability and results. Medications Administered Discontinued Medications Generic Name Dose Route Start Last Admin Trade Name Freq PRN Reason Stop Dose Admin Vancomycin HCl 2,000 mg in 500 mls @ 250 mls/hr 05/17/25 17:36 05/17/25 20:02 Vancomycin/Ns IV 05/17/25 19:35 Infused ONCE ONE Infusion Cefazolin Sodium/Dextrose 2 gm in 50 mls @ 100 mls/hr 05/17/25 17:36 05/17/25 18:50 Ancef IV 05/17/25 18:05 Infused ONCE ONE Infusion Medical Decision Making Medical Decision Making MDM Narrative: Medical Decision Making: [age] female with intellectual disability, PCOS with sounds like 3-4 days of redness and ulceration of the left medial inferior breast this is consistent with small superficial ulcer/abscess. Culture was taken of the drainage. Bedside ultrasound was performed see report above but there was no deep or large abscess collection, fistula. Patient is afebrile has minimal tachycardia and minimal leukocytosis. Blood culture lactic acid added on though the patient is quite comfortable case was discussed with surgery photo sent they are agreeable given the lack of fever patient can follow up in outpatient clinic with oral antibiotics. Preliminary Favored Differential Diagnosis: Breast abscess, breast cellulitis, breast ulceration, underlying malignancy can not be excluded among additional considered etiologies Testing Interpreted Independently: ?See below for details Radiology or Lab testing Results Reviewed: ?See below for details Consults: General surgery Dr. Crain. I sent him a photo in a description of the case he was agreeable given the patient's hemodynamic stable, no fever or other systemic signs that the patient could go home on antibiotics agreed with local debridement if needed. Independent Historians/External Chart Reviews: ?See below for details Social Determinants of Health Impacting MDM/Planning: ?See below for details Consult Healthcare Provider Management of the patient was discussed with: Acoustical Carpenter (General surgery) Lab Data MDM Lab Attestation statement: I reviewed the patient's lab results. 05/17/25 15:41 05/17/25 15:41 Labs: Lab Results 05/17/25 05/17/25 Range/Units 15:41 17:56 WBC 11.5 H (4.8-10.8) X10*3/uL RBC 4.40 (4.20-5.50) X10*6/uL Hgb 13.7 (12.0-16.0) g/dl Hct 38.4 (37.0-47.0) % MCV 87.3 (80.0-98.0) fL MCH 31.1 (27.0-33.0) pg MCHC 35.7 H (31.0-35.0) g/dl RDW 11.9 (11.0-16.0) % Plt Count 291 (160-400) X10*3/uL MPV 9.8 (9.4-12.3) fL Immature Gran % (Auto) 0.5 H (0.0-0.4) % Neut % (Auto) 65.3 (45-73) % Lymph % (Auto) 25.9 (20-40) % Newton % (Auto) 6.2 (2-11) % Eos % (Auto) 1.8 (0-4) % Baso % (Auto) 0.3 (0-2) % Lymph # (Auto) 3.0 (1.2-4.9) X10*3/uL Newton # (Auto) 0.7 (0.1-1.2) X10*3/uL Eos # (Auto) 0.2 (0.0-0.4) X10*3/uL Baso # (Auto) 0.0 (0.0-0.2) X10*3/uL Abs Immat Gran (auto) 0.06 H (0.00-0.03) X10*3/uL Absolute Neuts (auto) 7.5 (2.0-8.3) x10*3/uL Absolute Nucleated RBC 0.000 (0.0-0.012) X10*3/uL Nucleated RBC % (auto) 0.0 (0.0-0.2) /100WBC ESR 35 H (0-20) MM/HR Sodium 138 (135-145) mmol/L Potassium 4.0 (3.3-5.1) mmol/L Chloride 104 (96-108) mmol/L Carbon Dioxide 25 (22-29) mmol/L Anion Gap 13 (12-20) BUN 11 (9-16) mg/dL Creatinine 0.73 (0.5-1.4) mg/dL Estim Creat Clear Calc 132.8 Estimated GFR > 60 Random Glucose 100 (60-115) mg/dL Lactic Acid 1.5 (0.5-2.0) mmol/L Calcium 9.4 (8.4-10.2) mg/dL Total Bilirubin 0.7 (0.0-1.0) mg/dL AST 22 (5-31) U/L ALT 24 (0-31) U/L Alkaline Phosphatase 42 (39-117) U/L C-Reactive Protein 2.94 H (< or = 0.50) mg/dL Total Protein 7.6 (6.5-8.0) g/dL Albumin 4.2 (3.5-5.0) g/dL Hold Red Top See Note Discharge Plan Discharge Clinical Impression: Abscess of breast Patient Disposition: Home, Self-Care Instructions: Mastitis (ED) Additional Instructions: _ DISCHARGE DIAGNOSES: Left breast cellulitis and abscess HISTORY OF PRESENTATION: ?Breast changes for 3 days EMERGENCY DEPARTMENT COURSE,TESTS, TREATMENTS: While in the ED today you had blood cultures lab work. We consulted and discussed with our general/breast surgeon team. An ultrasound was performed which did not show any deep or large abscesses DISCHARGE MEDICATIONS: ?[We have made no changes to your regular medication regimen] we have added Bactrim and cefadroxil to antibiotics that can be taken twice per day for the next 7 days each. With these antibiotics we recommend taking a probiotic which you can get [id number] at the pharmacy or having yogurt twice per day while on the medication FOLLOW-UP: ?Call your primary or general physician soon as possible to discuss your symptoms, your ED visit and to discuss follow up plans Call tomorrow morning the general surgeon clinic for follow up number attached here INSTRUCTIONS ?& RETURN PRECAUTIONS: If any symptoms change first call your primary physician, if it is after-hours your primary doctors office should have a provider aerial planting and cultivation manager you can speak with. If the symptoms are severe or very concerning to you then call 911 or return to the ED. Return for high fevers change in mental status worsening of the breast appearance or drainage after 48 hours of antibiotics or other symptoms that we discussed Luis Banuelos MD Emergency Physician [facility] Prescriptions: New sulfamethoxazole-trimethoprim [Bactrim DS] 800-160 mg tablet 1 tab PO Q12H 7 Days Qty: 14 0RF cefadroxil 500 mg capsule 500 mg PO BID 7 Days Qty: 14 0RF No Action medroxyprogesterone 10 mg tablet 10 mg PO DAILY fluoxetine 10 mg capsule 10 mg PO DAILY albuterol sulfate 90 mcg/actuation HFA aerosol inhaler 2 puff inhalation Q4-6H PRN (Reason: shortness of breath or wheezing) 10 Days Qty: 6.7 0RF prednisone 20 mg tablet 20 mg PO DAILY Qty: 10 0RF Referrals: [facility] General Surgeons [Provider Group, General Surgery] Referral Note: Call tomorrow for ER follow up, tell them Dr. Crain was consulted in the ED and aware of the case. She will need follow up in the office Interventions: ED Discharge Assessment Last Done: 05/17/25 20:08 Discharge Date/Time: 05/17/25 20:10 Print Language: Yakut
[2025-05-17 15:47] LABS: MANUAL DIFF FLAG NO
[2025-05-17 15:49] LABS: Hematocrit 38.4 % (37.0-47.0); Hemoglobin 13.7 g/dl (12.0-16.0); Imm Gran Abs Auto 0.06 X10*3/uL (0.00-0.03); Imm Gran Pct Auto 0.5 % (0.0-0.4); Lymphocytes Absolute Auto 3.0 X10*3/uL (1.2-4.9); Mean Corpuscular HGB Conc 35.7 g/dl (31.0-35.0); Mean Corpuscular Hemoglobin 31.1 pg (27.0-33.0); Mean Corpuscular Volume 87.3 fL (80.0-98.0); NRBC Abs Auto 0.000 X10*3/uL (0.0-0.012); NRBC Pct Auto 0.0 /100WBC (0.0-0.2); Platelet Count 291 X10*3/uL (160-400); Red Blood Count 4.40 X10*6/uL (4.20-5.50); White Blood Count 11.5 X10*3/uL (4.8-10.8)
--- NOTE | 2025-05-17 15:54 | PC.NURSE ---
pt has draining wound/abscess under left breast - no wound seen on right side
[2025-05-17 16:02] LABS: Alanine Aminotransferase 24 U/L (0-31); Albumin Level 4.2 g/dL (3.5-5.0); Alkaline Phosphatase 42 U/L (39-117); Anion Gap 13 (12-20); Aspartate Amino Transferase 22 U/L (5-31); Blood Urea Nitrogen 11 mg/dL (9-16); Calcium 9.4 mg/dL (8.4-10.2); Carbon Dioxide 25 mmol/L (22-29); Chloride 104 mmol/L (96-108); Creatinine Clr Calc Pharmacy 132.8; Estimated Glomerular Filt Rate > 60; Potassium 4.0 mmol/L (3.3-5.1); Sodium 138 mmol/L (135-145); Total Protein 7.6 g/dL (6.5-8.0)
[2025-05-17 16:24] VITALS: BP 124/76; PULSE 101; RESP 16; TEMP 36.8; O2SAT 99
[2025-05-17 16:33] LABS: Erythrocyte Sedimentation Rate 35 MM/HR (0-20)
--- OUTSIDE RECORDS SUMMARY | 2025-05-17 18:25 | XMS_ITS ---
Author Name [facility] Organization Unknown Care Team Organization Name Specialty Phone Email Start Date End Da te [facility] Danielle Cheng Primary Care 11/16/2022 02/28/[address] [facility] Nomi Hopkins Primary Care 10/13/202202/[address] [facility] Deborah Vivar Primary Care 05/19/20222023
[2025-05-17] MEDS: vancomycin/NS 2,000 MG/500 ML PLAST..BAG 250 MG IV (18:38)
--- NOTE | 2025-05-17 19:27 | PC.NURSE ---
this RN assumed care of this pt @1900, pt noted to be laying semi jenkins's in hospital stretcher, parents at the bedside, appears to be in no apparent / respiratory distress at this time, respirations even and unlabored, call light provided for safety
--- NOTE | 2025-05-17 20:07 | PC.NURSE ---
per provider Indigo d/c post 150 ml infused , waste of 350ml
[2025-05-17 20:08] VITALS: BP 0/0; PULSE 0; RESP 18; TEMP -17.7; TEMP 0; O2SAT 0
== END 2025-05-17 20:10 | disposition home or self-care (01) ==
PROVIDERS: Physician Assistant Medical; Emergency Provider Emergency Medicine; PCP Internal Medicine
DX: N61.1 Abscess of the breast and nipple (principal); R00.0 Tachycardia, unspecified; D72.829 Elevated white blood cell count, unspecified
CPT/HCPCS: 36415; 76642; 80053; 83605; 85025; 85652; 86140; 87040; 87070; 87205; 96365; 96368; 99284; J0690; J3373

== ENCOUNTER 2025-05-18 07:58 | Emergency (ER) | payer OTHER, SELFPAY ==
[2025-05-18 08:04] VITALS: BP 117/64; PULSE 82; RESP 16; TEMP 36.4; O2SAT 97; BMI 39.6
--- NOTE | 2025-05-18 10:10 | ED.SKABFB ---
HPI - Skin/Abscess/Foreign Bdy General Chief complaint: Skin/Abscess/Foreign Body Stated complaint: abscess still leaking, seen yesterday Time Seen by Provider: 05/18/25 08:17 Source: patient and family (Mother) Mode of arrival: ambulatory Limitations: other (Intellectual disability) History of Present Illness ED Provider: VIRGEN James HPI narrative: This is a 29-year-old female past medical history of intellectual disability, recently diagnosed with abscess of left breast presenting to the emergency department for re-evaluation of left breast. According to mother she was under the impression that she had to come back today for re-evaluation. She reports not much has changed. She tells me she was discharged on 2 different antibiotics however, they have not yet pick these up and she has not taken them today. The breast is still red, warm and tender to palpation. Patient has not experienced any worsening pain, fevers, chills, fatigue, malaise or myalgias. Related Data Home Medications ?Medication ?Instructions ?Recorded ?Confirmed fluoxetine 10 mg capsule 10 mg PO DAILY 12/28/24 01/01/25 medroxyprogesterone 10 mg tablet 10 mg PO DAILY 12/28/24 01/01/25 Previous Rx's ?Medication ?Instructions ?Recorded albuterol sulfate 90 mcg/actuation 2 puff inhalation Q4-6H PRN 12/28/24 aerosol inhaler shortness of breath or wheezing 10 days #6.7 grams prednisone 20 mg tablet 20 mg PO DAILY #10 tabs 01/01/25 cefadroxil 500 mg capsule 500 mg PO BID 7 days #14 caps 05/17/25 sulfamethoxazole 800 1 tab PO Q12H 7 days #14 tabs 05/17/25 mg-trimethoprim 160 mg tablet (Bactrim DS) Allergies Allergy/AdvReac Type Severity Reaction Status Date / Time No Known Allergies Allergy Verified 05/18/25 08:08 Review of Systems Review of Systems: Yes all other systems are reviewed and are negative PMFSH Past Medical History Attestation statement: The following information was validated with the patient. Source: old records reviewed and nursing notes reviewed Medical History Wheezing on auscultation Cough Autism spectrum Social History Social History Alcohol intake: never Patient Tobacco Use Status: Never used Tobacco Physical Exam Exam: Exam: Appearance: Alert.? Oriented X3.? No acute distress.? Head: Normocephalic, atraumatic, no step-offs or deformities Eyes: Pupils equal, round and reactive to light.? Neck: Normal inspection.? Neck supple.? Respiratory: No respiratory distress.? Skin: Skin warm and dry.? Normal skin color.? Normal skin turgor.? + open region to the L breast at the 7 ocklock position appears to be slightly draing from this region. Surrounding errythema and warmth. No fluctuance. Extremities: No lower extremity edema.? No calf ttp. 5/5 strength to bilateral upper and lower extremities Back: No midline tenderness, no C-spine tenderness, full range of motion, no CVA tenderness bilaterally Neuro: Oriented X 3.? No motor deficit.? No sensory deficit. CN 2-12 intact Vital Signs: Vital Signs: Last Vital Signs Temp 97.6 F 05/18/25 08:04 Pulse 82 05/18/25 08:04 Resp 16 05/18/25 08:04 BP 117/64 05/18/25 08:04 Pulse Ox 97 05/18/25 08:04 O2 Del Method Room Air 05/18/25 08:04 BMI result Body Mass Index 39.6 vss Course Reevaluation(s) Reevaluation #1: Educated patient on diagnosis and treatment plan, answered all question, patient verbalizes understanding. At this time patient will be discharged home, advised to return with new or worsening symptoms. Educated on worrisome signs and symptoms and when to return. At this time I feel comfortable discharge home. Time: 10:17 Medical Decision Making Medical Decision Making MDM Narrative: 29-year-old female presents for re-evaluation of left breast. Seen here yesterday Patient was seen here yesterday and this case was discussed with General surgery Dr. Crain, he received a photo via [employer] and they decided that patient could be discharged with p.o. antibiotics and surgical follow-up. I was at the bedside and assisted mother with calling for surgical follow-up and I als assisted her by instructing her on how to call the pharmacy to see if antibiotics were ready. To antibiotics or ready for mushroom picker at 16:[address] On exam there is + open region to the L breast at the 7 ocklock position appears to be slightly draing from this region. Surrounding errythema and warmth. No fluctuance. I did kiko the area with a skin marker and explained to them that they should return if erythema goes beyond the marker. History and physical exam concerning for draining abscess of the left breast with overlying cellulitis. No signs of necrosis. Patient and family verbalized understanding of this plan. There is no further indication for labs or treatment at this time as patient has been prescribed antibiotics however has not yet started them. I did stress the importance of taking the antibiotics as prescribed every day and starting them today. Educated on when to return and explained which signs and symptoms are worrisome. I outlined them on discharge. Differential Diagnosis Differential Diagnoses: The differential diagnosis associated with the presentation includes (History and physical exam concerning for draining abscess of the left breast with overlying cellulitis. No signs of necrosis.) Admission/Observation Consideration of admission/observation: Escalation of care including admission/observation considered (no indication ) External Record Review External record reviewed: Inpatient record, Office record, Outpatient record, Prior outpatient labs, Prior outpatient radiology, Primary care record and Outside ED record Prescription Management I considered prescription management with: Antibiotic (Bactrim and cefadroxil) Chronic Conditions Patient?s care impacted by: Other (see hpi ) Social Determinants Patient?s care significantly limited by Social Determinants of Health including: Other Social Determinant of Health Discharge Plan Discharge Clinical Impression: Abscess of skin or subcutaneous tissue, Cellulitis Patient Disposition: Home, Self-Care Instructions: Cellulitis (ED), Abscess (ED) Additional Instructions: Take your medications as prescribed. If you were prescribed antibiotics today, it is important that you take your medication to their entirety, do not skip any doses, do not finish them early. Follow-up with your primary care provider this week. Return to the emergency department with new or worsening symptoms. Such as fevers, chills, chest pain, shortness of breath, nausea, vomiting, dizziness, headache, vision changes, lethargy In case of emergency call 911 I marked the areas of cellulitis or skin infection with a skin marker, if the redness goes beyond the marker, please come in for evaluation. The doctor that saw you yesterday sent you to antibiotics 1 of them is called Bactrim, the other 1 is called cefadroxil. Both of these have been sent to your pharmacy. Please take these as prescribed. Please follow-up with general surgery. You mentioned that you have an appointment on May 31, it is important that you attend this appointment. Please return if you experience any worsening signs of infection such as worsening redness, swelling, fevers, chills or discharge from the breast Prescriptions: No Action sulfamethoxazole-trimethoprim [Bactrim DS] 800-160 mg tablet 1 tab PO Q12H 7 Days Qty: 14 0RF cefadroxil 500 mg capsule 500 mg PO BID 7 Days Qty: 14 0RF medroxyprogesterone 10 mg tablet 10 mg PO DAILY fluoxetine 10 mg capsule 10 mg PO DAILY albuterol sulfate 90 mcg/actuation HFA aerosol inhaler 2 puff inhalation Q4-6H PRN (Reason: shortness of breath or wheezing) 10 Days Qty: 6.7 0RF prednisone 20 mg tablet 20 mg PO DAILY Qty: 10 0RF Referrals: [facility] [place] [facility] [Provider Group, General Surgery] Print Language: Burundian
[2025-05-18 10:15] VITALS: BP 117/64; PULSE 82; RESP 16; TEMP 36.4; O2SAT 97
== END 2025-05-18 10:17 | disposition home or self-care (01) ==
PROVIDERS: Emergency Provider Emergency Medicine Emergency Medical Services; PCP Internal Medicine
DX: N61.1 Abscess of the breast and nipple (principal); N61.0 Mastitis without abscess; Z79.899 Other long term (current) drug therapy
CPT/HCPCS: 99282; 99283

== ENCOUNTER 2025-05-18 16:36 | Emergency (ER) | payer OTHER, SELFPAY ==
[2025-05-18 16:54] VITALS: BP 121/67; PULSE 94; RESP 18; TEMP 36.4; O2SAT 97; BMI 40.3
--- NOTE | 2025-05-18 17:00 | ED_ITS ---
HPI - Skin/Abscess/Foreign Bdy General Chief complaint: Skin/Abscess/Foreign Body Stated complaint: ?Infection Time Seen by Provider: 05/18/25 17:02 Source: patient, family and RN notes reviewed Mode of arrival: ambulatory Limitations: no limitations History of Present Illness ED Provider: Cecilia Israel PA-C HPI narrative: This is a 29-year-old female, intellectual disability, recently diagnosed with abscess of left breast, who presents emergency department with mother with concerns for wound check. Patient was seen here earlier due to a left breast infection, was started on antibiotics sent in by another physician yesterday. Patient only had 1 dose of this antibiotic. Mother wanted to bring patient in as redness has started to spread beyond the outlined line. Patient is feeling well, no current concerns. No fevers or chills. No other complaints or concerns at this time. MD complaint: abscess/boil Relieving factors: none Exacerbating factors: none Context: none Associated symptoms: denies other symptoms Treatments prior to arrival: none Related Data Home Medications ?Medication ?Instructions ?Recorded ?Confirmed fluoxetine 10 mg capsule 10 mg PO DAILY 12/28/2412/11 medroxyprogesterone 10 mg tablet 10 mg PO DAILY 01/01/25 Previous Rx's ?Medication ?Instructions ?Recorded albuterol sulfate 90 mcg/actuation 2 puff inhalation Q 4-6H PRN 12/28/24 aerosol inhaler shortness of breath or wheez ing 10 days #6.7 grams prednisone 20 mg tablet 20 mg PO DAILY #10 tabs 12/11 10/03 cefadroxil 500 mg capsule 500 mg PO BID 7 days #14 cap s 05/17/25 sulfamethoxazole 800 1 tab PO Q12H 7 days #14 tab s 05/17/25 mg-trimethoprim 160 mg tablet (Bactrim DS) Allergies Allergy/AdvReac Type Severity Reaction Status Date / Time No Known Allergies Allergy Verified 05/18/25 16:57 Review of Systems Review of Systems: Constitutional : No Fever, No Chills ENT/Mouth : No sore throat, No Rhinorrhea Eyes: No Eye Pain, No Swelling, No Redness Cardiovascular : No Chest Pain, No SOB Respiratory : No Cough, No Sputum Gastrointestinal : No Nausea, No Vomiting, No Diarrhea, No abdominal Pain Genitourinary : No Dysuria, No Hematuria Musculoskeletal : No joint pain, No Myalgias, No Joint Swelling Skin : + Skin Lesions Neuro : No Weakness, No Numbness, No Headache All other systems reviewed and are negative Yes all other systems are reviewed and are negative Constitutional: Constitutional: Reports as per [facility] Past Medical History Medical History Wheezing on auscultation Cough Autism spectrum Social History Social History Alcohol intake: never Patient Tobacco Use Status: Never used Tobacco Advance Directives: No Advance Directives Information Provided: Yes Physical Exam Vital Signs: Vital Signs: Last Vital Signs Temp 97.5 F 05/18/25 17:09 Pulse 94 05/18/25 17:09 Resp 18 05/18/25 17:09 BP 121/67 05/18/25 17:09 Pulse Ox 97 05/18/25 17:09 O2 Del Method Room Air 05/18/25 17:09 BMI result Body Mass Index 40.3 Const: General: cooperative, comfortable and no acute distress Orientation/consciousness: patient oriented x3 Limitations: no limitations HEENT: Head: Yes normal to inspection, Yes normocephalic and Yes atraumatic Ears: hearing grossly normal bilaterally General nose exam: Normal external nose present Face and sinus: Yes normal facial exam Mouth: Normal oral and palatal mucosa present, oropharynx normal and moist mucous membranes Throat: Yes posterior oropharynx normal Eyes: General: appearance normal, both eyes and all related structures Eyelids: Yes eyelids normal Conjunctivae: conjunctivae normal Sclerae: sclerae normal Pupils: Equal, round and reactive pupils present EOM: EOMs intact bilaterally Neck: Neck: Yes normal visual inspection, Yes full ROM and Yes no lymphadenopathy Lymphatic: no lymphadenopathy noted Chest: Chest palpation & inspection: normal inspection of the chest Resp: Effort & Inspection: normal respiratory effort and able to speak in complete sentences Auscultation: clear to auscultation bilaterally, no crackles, no rales, no rhonchi and no wheezes Cardio: Rate: regular rate Rhythm: regular rhythm Heart sounds: S1 normal heart sound present and S2 normal heart sound present GI: Inspection: Yes normal to inspection Skin: Other: Left breast at the 6-7 o'clock position there is a open area, with slight drainage noted, mild surrounding erythema and warmth. Does not extend beyond the outlined line. Trauma: no lacerations or abrasions Neuro: General: patient oriented x3 and moves all extremities Cranial nerves: Yes Equal, round and reactive pupils present Extrem: General: Yes normal to inspection Right upper extremity: normal to inspection Left upper extremity: normal to inspection Right lower extremity: normal to inspection Left lower extremity: normal to inspection Medical Decision Making Medical Decision Making MDM Narrative: This is a 29-year-old female, intellectual disability, recently diagnosed with abscess of left breast, who presents emergency department with mother with concerns for wound check. On arrival, vital signs within normal limits. Patient was seen here earlier for this, patient only had 1 dose of her antibiot ics. I discussed with mother that the redness is not beyond the outlined line. I encouraged to keep medicating with antibiotics as I do not believe that we have given the antibiotics enough time to work. She is afebrile, nontoxic is sick appearing, speaking in full sentences. Given strict return precautions. Mother understands and agrees with plan. Patient stable for discharge. Differential Diagnosis Differential Diagnoses: The differential diagnosis associated with the presentation includes Cellulitis, abscess, abrasion, folliculitis Independent Historian Clinical information obtained from an independent historian. History obtained from or confirmed by: Parent Discharge Plan Discharge Clinical Impression: Abscess of skin or subcutaneous tissue Patient Disposition: Home, Self-Care Instructions: Abscess (ED) Additional Instructions: Olimpia was seen in the emergency department for wound check. Please continue taking antibiotics as prescribed. Please finish the entire course even if your symptoms improve. Do not skip any doses, do not finish them early. Follow-up with your primary care. If any new or worsening symptoms occur such as fevers, chills, worsening redness, swelling, please seek emergent care. The doctor that saw you yesterday sent you to antibiotics 1 of them is called Bactrim, the other 1 is called cefadroxil. Both of these have been sent to your pharmacy. Please take these as prescribed. Please follow-up with general surgery. You mentioned that you have an appointment on May 31, it is important that you attend this appointment. Please return if you experience any worsening signs of infection such as worsening redness, swelling, fevers, chills or discharge from the breast Prescriptions: No Action sulfamethoxazole-trimethoprim [Bactrim DS] 800-160 mg tablet 1 tab PO Q12H 7 Days Qty: 14 0RF cefadroxil 500 mg capsule 500 mg PO BID 7 Days Qty: 14 0RF medroxyprogesterone 10 mg tablet 10 mg PO DAILY fluoxetine 10 mg capsule 10 mg PO DAILY albuterol sulfate 90 mcg/actuation HFA aerosol inhaler 2 puff inhalation Q4-6H PRN (Reason: shortness of breath or wheezing) 10 Days Qty: 6.7 0RF prednisone 20 mg tablet 20 mg PO DAILY Qty: 10 0RF Interventions: ED Discharge Assessment Last Done: 05/18/25 17:09 Discharge Date/Time: 05/18/25 17:10 Print Language: Palestinian
--- OUTSIDE RECORDS SUMMARY | 2025-05-18 17:08 | XMS_ITS | Encounter Summary ---
Author Organization [facility] Address [address] [place] [address] Care Team Providers Care Remarketing Manager Name Role Phone Jay Raman MD Primary Care Provider Danielle Egan MD Primary Care Prov ider Mihcael Castro Unavailable Unavailable Reason for Visit * Reason Comments E-prescribe Rx Request Encounter Details Date Type Department Care Team Description 11/04/2021 Refill Adult Medicine [address] [id number] Rashmi Garcia PA-C [address] [place] [id number] E-prescribe Rx Request Social History Tobacco Use Types Packs/Day Years Used Date Smoking Tobacco: Never Smokeless Tobacco: Never Alcohol Use Standard Drinks/Week Comments No 0 (1 standard drink = 0.6 oz pur e alcohol) Sex Assigned at Date Recorded Not on file Job Start Date Occupation Industry Not on file Not on file Not on file documented as of this encounter Miscellaneous Notes * Telephone Encounter - Brenda Cary M.A. - 11/19/2021 11:41 AM EDT Lab Results Component Value Date NA 137 09/30/2020 K 4.1 09/30/2020 CO2 26 09/30/2020 CL 104 09/30/2020 BUN 14 09/30/2020 CREAT 0.80 09/30/2020 GLU 98 09/30/2020 CA 9.5 09/30/2020 GFR > 60 09/30/2020 LEOBARDO 09/17/20 - Krystina Garcia NOV 02/03/22 - Krystina Garcia - Last refill 04/16/21 for 90 day supply, please review if refill is appropriate if not please refuse. Thank you * Telephone Encounter - Aria Mustafa - 11/19/2021 11:27 AM EDT Pt scheduled for 02/03/2022 * Telephone Encounter - Estefanía Anna - 11/12/2021 1:58 PM EDT L/m for pt call back make appt (2nd attempt) * Telephone Encounter - Jaquan Amezquita - 11/06/2021 2:55 PM EDT Patient would like script to be: E-PRESCRIBED/FAXED TO PHARMACY WHEN WAS THE PATIENT'S LAST APPOINTMENT IN ADULT MEDICINE? 09/17/20 WHEN WAS THE LAST TIME THE PATIENT SAW THEIR PCP? 12/23/2017 Does patient have an upcoming appointment? No-unable to reach left voicemaill to call for appointment due to refill request. Appt due Left vm for patient to call back and schedule medication check up (THE MEDICATION REQUESTED IS ON THE MED LIST ABOVE) All of the medications requested were on the CURRENT MEDS list Did you check the Pharmacy information above?: YES Patient wants: 30 -day supply Is this a mail order prescription request ? NO If the refill is from a FAXED refill request what is the RX # listed on the fax? N/A Patients current insurance carrier is: Payor: [employer] F[employer] / Plan: [employer] / Product Type: MEDICAID RISK documented in this encounter Plan of Treatment Not on file documented as of this encounter Visit Diagnoses Not on filedocumented in this encounter Care Teams Remarketing Manager Relationship Specialty Start Date End Date Jay Raman MD PCP - General Internal Medicine 02/28/21 12/28/21 Danielle Cheng MD [address] [place] [id number] PCP - General Internal Medicine 12/29/21 Michael Castro [address] [place] [id number] Specialist Dermatology 01/05/23 documented as of this encounter
--- OUTSIDE RECORDS SUMMARY | 2025-05-18 17:08 | XMS_ITS | Clinical Summary ---
Author Organization [facility] [address] [facility] Address [address] [place] [address] Phone Care Team Providers Care Commercial Credit Specialist Name Role Phone Danielle Cazares MD Primary Care Prov ider Allergies No known active allergies Medications FLUoxetine (PROzac) 10 mg capsule TAKE 1 CAPSULE BY MOUTH EVERY DAY 90 capsule 2 5 Active acetaminophen (TYLENOL) 500 mg tablet Take 1 tablet (500 mg total) by mouth every 6 (six) hours if needed. 5 Active ibuprofen (ADVIL,MOTRIN) 600 mg tablet Take 1 tablet (600 mg total) by mouth every 8 (eight) hours if needed for moderate pain. 5 Active medroxyPROGESTE Erickson (PROVERA) 10 mg tablet Take 1 tablet (10 mg total) by mouth 1 (one) time each day. 90 each 3 5 10/16/19 26 Active Ventolin HFA 90 mcg/actuation inhaler INHALE 2 PUFFS EVERY 4 TO 6 HOURS NEEDED FOR SHORTNESS OF BREATH OR WHEEZE FOR 10 DAYS 5 Active azithromycin (ZITHROMAX) 500 mg tablet Take 1 tablet (500 mg total) by mouth 1 (one) time each day. 5 Active predniSONE (DELTASONE) 20 mg tablet 5 Active Active Problems Problem Noted Date Diagnosed Date PCOS (polycystic ovarian syndrome) 07/22/2023 Assessment & Plan (07/10/2024 9:39 AM EST): Managed by [facility]. Hidradenitis suppurativa 09/17/2020 Assessment & Plan (07/10/2024 9:39 AM EST): Well-controlled, no recent exacerbations. Continue clindamycin. Intermittent explosive 08/02/2018 Adjustment disorder with anxiety 06/23/2018 Active autistic disorder 12/27/2017 Overview (05/23/2024): Per [facility] Assessment & Plan (07/10/2024 9:39 AM EST): Good overall performance. She [facility] a week. Takes fluoxetine and hydroxyzine every day. Needs a QuantiFERON for her program. 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 Acne vulgaris 03/25/2016 Childhood obesity 10/14/2011 Encounters Date Type Department Care Team Description 05/15/2025 Telephone Adult Medicine [address] [phone] Danielle Cazares MD 05/14/2025 Telephone Adult Medicine [address] [phone] Danielle Cazares MD 05/08/2025 Telephone Adult Medicine [address] [phone] Danielle Cazares MD 05/08/2025 Telephone Adult Medicine [address] [phone] Danielle Cazares MD 04/30/2025 Telephone Adult Medicine [address] [phone] Danielle Cazares MD from Last 3 Months Immunizations Immunization Administration Dates Next Due DTaP (Infanrix) 6wks to less than 7yo ,04/02/1999,03/12/1998,01/01,1997 DTaP 5 pertussis antigens, D iptheria Tetanus acellular pertussis (Daptacel) 6wks to less than 7yo 10/06/2001,04/02/1999,03/12/1998,01/01,1997 H1N1 All Forms 04/26/2009 H1N1 Inj Preservative Free 04/26/2009 HPV 9-valent (Gardisil) 9yo to less than 46yo 12/04/2015,03/20/2015 HPV, Quadrivalent 03/15/2014 Hepatitis A Pediatric (Havri x; Vaqta) 12mo to less than 19yo 12/04/2015,03/20/2015 Hepatitis B Pediatric (Enger ix B; Recombivax HB) to less than 20 yo 03/12/1998,1997,1997 HiB PRP-T conjugate (Acthib, Hiberix) 6wks and older 12/17/1998,03/12/1998,01/01/1998,11/06 IPV Inactivated polio (Ipol) 6wks and older 10/06/2001,01/01/1998,1997 Influenza Quadravalent, MDCK , 0.5ml, preservative free (Flucelvax) 6mo and older 05/31/2023,09/17/2020,05/01/2019 Influenza Quadrivalent, 0.5m l, preservative free (Fluarix; FluLaval; Fluzone) ages 6mo and older (Afluria) 3yo and older 08/16/2017,03/25/2016,03/20/2015,03/15 Influenza trivalent, 0.5mL, preservative free (Fluarix; FluLaval; Fluzone) ages 6mo and older (Afluria) 3 years and older 08/16/2017,03/25/2016,03/20/2015 Influenza trivalent, with pr eservative (Fluzone; Afluria) 6mo and older 04/26/2009 Influenza, Unspecified 07/13/2022 MMR, measles mumps and rubel la Live (Priorix; M-M-R II) 12mo and older 10/06/2001,09/09/1998 Meningococcal MCV4P 03/25/2016,09/12/2009 OPV 09/09/1998 Pfizer (ages 12 & older) Biv alent, COVID-19 07/24/2022 Pfizer Covid-19 Bivalent, Or iginal + Ba.1 (Non-US Trademark COMIRNATGrouply Bivalent) 07/24/2022 Tdap Tetanus diptheria acell ular pertussis (Boostrix; Adacel) 7yo and older 09/17/2020,09/12/2009 Varicella live (Varivax) 12m o and older 12/12/2007,09/09/1998 Surgical History Surgery Date Site/Laterality Comments OTHER SURGICAL HISTORY PROCEDURE: DENIES PREVIOUS SURGERY Medical History Medical History Date Comments PDD (pervasive developmental disorder), active 10/21/2017 DX:PDD (pervasive developmen mariah disorder), active Family History Medical History Relation Name Comments No Known Problems Father Breast cancer Father's side great aunt Dementia Maternal Grandfather Dementia Maternal Grandmother No Known Problems Mother Dementia Paternal Grandfather Relation Name Status Comments Father Alive Father's side Alive Maternal Grandfather Maternal Grandmother Mother Alive Paternal Grandfather Paternal Grandmother Alive Social History Tobacco Use Types Packs/Day Years Used Date Smoking Tobacco: Never Smokeless Tobacco: Never Tobacco Cessation:Counseling Given: Not Answered Alcohol Use Standard Drinks/Week Comments No 0 (1 standard drink = 0.6 oz pur e alcohol) Housing Instability Answer Date Recorde d Are you worried that in the next 2 months you may not have stable housing? No 01/03/2025 Food Access & Nutrition Answer Date Rec orded Do you have access to a vari ety of food including fruits and vegetables? Yes 01/03/2025 Health Literacy Answer Date Recorded How often do you need to hav e someone help you when you read instructions, pamphlets, or other written material from your doctor or pharmacy? Never 01/03/2025 Caregiver: How often do you need to have someone help you when you read instructions, pamphlets, or other written material from your doctor or pharmacy? Not on file 01/03/2025 Financial Risk Answer Date Recorded How hard is it for you to pa y for the very basics like food, housing, medical care, and air conditioning / heating? Not very hard 01/03/2025 Transportation Answer Date Recorded Has the lack of transportati on kept you from meetings, work, or from getting things needed for daily living? No Has the lack of transportati on kept you from medical appointments or from getting medications? No 01/03/2025 Social Isolation Answer Date Recorded How often do you feel lonely or isolated from th ose around you? Never 01/03/2025 Food Risk Answer Date Recorded Within the past 12 months we worried whether our food would run out before we got money to buy more. Never true 01/03/2025 Within the past 12 months th e food we bought just didn't last and we didn't have money to get more. Never true 01/03/2025 Dependent Care Answer Date Recorded Do you need help finding or paying for care for your loved ones. For example, teacher early childhood development or elderly care for an older adult? No 01/03/2025 Education Answer Date Recorded Do you think completing more education or training, like finishing a GED, going to college, or learning a trade, would be helpful for you? No 01/03/2025 Employment and Income Answer Date Recor ded During the last four weeks, have you been actively looking for work? No 01/03/2025 Living Situation Answer Date Recorded What is your living situation? Unrecognized valu e 01/03/2025 Comments No Sex and Gender Information Value Date Recorded Sex Assigned at Not on file Legal Sex Female 11:14 AM EST Gender Identity Not on file Sexual Orientation Not on file Obstetrics History Para Term AB IAB SAB Ectopic Multiple Livin g Live Births 0 0 0 0 0 0 0 0 Last Filed Vital Signs Vital Sign Reading Time Taken Comments Blood Pressure 122/71 01/03/2025 2:37 PM EDT Pulse 83 01/03/2025 2:37 PM EDT Temperature 35.8 C (96.5 F) 01/03/2025 2:37 PM EDT Respiratory Rate 16 01/03/2025 2:37 PM EDT Oxygen Saturation 98% 11/14/2024 10:38 AM EDT Inhaled Oxygen Concentration - - Weight 103 kg (226 lb 12.8 oz) 01/03/2025 2:37 P M EDT Height 165.1 cm (5' 5 ) 01/03/2025 2:37 PM EDT Body Mass Index 37.74 01/03/2025 2:37 PM EDT Plan of Treatment Upcoming Encounters Date Type Department Care Team (Late st Contact Info) Description 01/15/2026 2:00 PM EDT Office Visit Adult Medicine [facility] [address], [place] [phone] Danielle Cazares MD [address] [place], [place] Health Maintenance Due Date Last Done Comments Cervical Cancer Screening: Pap Smear 05/01/2022 05/01/2019 Depression Screening 07/12/2024 03/08/2024 COVID-19 Vaccine ( season) 2025 01/28/2024, 06/18/2023, 07/24/2022, Additional history exists Influenza Vaccine (#1) 2025 , 07/13/2022, 09/17/2020, Additional history exists Social Influencers of Health Screening 01/03/2026 01/03/2025 Cholesterol Screening (Lipid Panel) 08/28/2027 08/28/2022, 08/28/2022 DTaP,Tdap,and Td Vaccines (8 - Td or Tdap) 09/17/2030 09/17/2020, 09/12/2009, 10/06/2001, Additional history exists RSV Immunization Adult Patients (1 - 1-dose 75+ series) 2072 Hepatitis B Vaccines Completed 03/12/1998, 1997, 1997 HIB Vaccines Completed 12/17/1998, 07/1997, 01/01/1998, Additional history exists IPV Vaccines Completed 10/06/2001, 07/1998, 01/01/1998, Additional history exists MMR Vaccines Completed 10/06/2001, 09/09/1998 Varicella Vaccines Completed 12/12/2007, 09/09/1998 HPV Vaccines Completed 12/04/2015, 03/2015, 03/15/2014 Hepatitis A Vaccines Completed 12/04/2015, 03/20/20 15 Meningococcal ACWY Vaccine Completed 03/25/2016, HIV Screening Discontinued Hepatitis C Screening Discontinued Meningococcal B Vaccine Aged Out No l onger eligible based on patient's age to complete this topic Pneumococcal Vaccine: Pediatrics (0 to 5 Years) and At-Risk Patients (6 to 49 Years) Aged Out No longer eligible based on patient's age to complete this topic RSV Immunization Patients Under 20 months Aged Out No longer eligible based on patient's age to complete this topic Procedures Procedure Name Priority Date/Time Associated Diagnosis Comments DEPRESSION SCREENING Routine 03/08/2024 LIPID PANEL Routine 08/28/2022 PAP SMEAR Routine 05/01/2019 from Last 3 Months or Most Recently Relevant to Health Maintenance Results * Depression Screening (03/08/2024) Depression Screening abstracted Historical Provider HEALTH MAINTENANCE Final Result * (ABNORMAL) Lipid panel (08/28/2022) LDL/HDL Ratio 7(A) <=4 Triglycerides 429(A) 0 - 150 mg/dL Cholesterol 228(A) 0 - 200 mg/dL HDL 35(A) >=40 mg/dL LDL Cholesterol 108(A) 0 - 100 mg/dL Blood Venous blood specimen / Unknown Historical Provider LAB BLOOD ORDERABLES Aster l Result * Pap Smear (05/01/2019) Pap smear No interpretation , abstracted Historical Provider HEALTH MAINTENANCE Final Result from Last 3 Months or Most Recently Relevant to Health Maintenance Insurance [employer] Care Teams Commercial Credit Specialist Relationship Specialty Start Date End Date Danielle Cazares MD [address] [place] [address] [phone] PCP - General Internal Medicine 09/13/24
--- OUTSIDE RECORDS SUMMARY | 2025-05-18 17:08 | XMS_ITS | Encounter Summary ---
Author Organization [facility] Address [address] [place] [address] Care Team Providers Care Child Neurologist Name Role Phone Danielle Cazares MD Primary Care Prov ider Encounter Details Date Type Department Care Team (Late st Contact Info) Description 05/08/2025 Telephone Adult Medicine [facility] [address] [place], [place] [phone] Danielle Cazares MD [address] [place], [place] Social History Tobacco Use Types Packs/Day Years [...] care for your loved ones. For example, children's minister or elderly care for an older adult? [...] on file documented as of this encounter Plan of Treatment Upcoming Encounters Date Type Department Care Team (Late st Contact Info) Description 01/15/2026 2:00 PM EDT Office Visit Adult Medicine [address] [phone] Danielle Cazares MD [address] [place] [address] documented as of this encounter Visit Diagnoses Not on filedocumented in this encounter Care Teams Child Neurologist Relationship Specialty Start Date End Date Danielle Cazares MD [address] [place] [phone] PCP - General Internal Medicine 09/13/24 documented as of this encounter
--- OUTSIDE RECORDS SUMMARY | 2025-05-18 17:08 | XMS_ITS | Encounter Summary ---
Author Organization [facility] Address [address] [place] [address] Care Team Providers Care Jig Boring Machine Set Up Operator Name Role Phone Danielle Cazares MD Primary Care Prov ider Reason for Visit * Reason Onset Date Comments returnng a call back 05/15/2025 Encounter Details Date Type Department Care Team ([facility] st Contact Info) Description 05/15/2025 Telephone Adult Medicine [address] [phone] Danielle Cazares MD [address] [place], [place] Social History Tobacco Use Types Packs/Day [...] care for your loved ones. For example, child therapist or elderly care for an older adult? [...] as of this encounter Progress Notes * Joanna Thompson MA - 05/15/2025 12:06 PM EST Patient was informed that letter was sent out * Mariella Campuzano - 05/15/2025 10:58 AM EST Patient mother is calling stating she received a VM but was not able to understand due to speaking to fast, patient mother would like a call back. documented in this encounter Plan of Treatment Upcoming Encounters Date Type Department Care Team (Late st Contact Info) Description 01/15/2026 2:00 PM EDT Office Visit Adult Medicine [address] [phone] Danielle Cazares MD [address] [place] [address] documented as of this encounter Visit Diagnoses Not on filedocumented in this encounter Care Teams Jig Boring Machine Set Up Operator Relationship Specialty Start Date End Date Danielle Cazares MD [address] [place] [address] PCP - General Internal Medicine 09/13/24 documented as of this encounter
--- OUTSIDE RECORDS SUMMARY | 2025-05-18 17:08 | XMS_ITS | Encounter Summary ---
Author Organization [facility] Address [address] [place] [address] Care Team Providers Care Cheese Specialist Name Role Phone Danielle Cazares MD Primary Care Prov ider Reason for Visit * Reason Onset Date Comments letter request 05/08/2025 Encounter Details Date Type Department Care Team ([facility] st Contact Info) Description 05/08/2025 Telephone Adult Medicine [facility] [address] [place] [address] Danielle Cazares MD [address] [place], [place] Social History Tobacco Use Types Packs/Day [...] care for your loved ones. For example, director of early childhood education or elderly care for an older adult? [...] Notes * Joanna Thompson MA - 05/15/2025 12:03 PM EST Patient was informed that letter was sent out * Joanna Thompson MA - 05/15/2025 10:14 AM EST MSG left for patient to return call back * Mikala Mir - 05/08/2025 3:11 PM EDT LORENZO, Call came in from [employer]. Per caller, mom had questions regarding proxy access. When I spoke to mom, she seemed very confused about what kind of proxy she is needing. She was told if there is a Health Care Proxy, Power of Frame Sample And Pattern Supervisor and / or legal guardianship documents, we need copies of these to have in the chart. Mom is not sure if she received the letter PCP sent last week regarding the patients health issues.Mom wanted this for SS disability. She is under the impression that this was also sent to [employer] from Dr. Tomas. She is not sure if [employer] mailed forms to PCP to be completed. * Mariella Campuzano - 05/08/2025 1:29 PM EDT Patient mother Laura called and stated she was told she is not patient proxy and never was and was told she was going to receive a letter in reference to patient disability, patient mother stated shewould also need a letter from PCP stating she is patient proxy, Laura stated patient Social Security has been disapproved on , patient mother sound a bit confused. documented in this encounter Plan of Treatment Upcoming Encounters Date Type Department Care Team (Late st Contact Info) Description 01/15/2026 2:00 PM EDT Office Visit Adult Medicine [address] [phone] Danielle Cazares MD [address] [place] [address] documented as of this encounter Visit Diagnoses Not on filedocumented in this encounter Care Teams Cheese Specialist Relationship Specialty Start Date End Date Danielle Cazares MD [address] [place] [address] PCP - General Internal Medicine 09/13/24 documented as of this encounter
--- OUTSIDE RECORDS SUMMARY | 2025-05-18 17:08 | XMS_ITS | Clinical Summary ---
Author Organization [facility] Address [address] [place] [address] Care Team Providers Care Plate Printer Name Role Phone Danielle Cheng MD Primary Care Prov ider Michael Castro Unavailable Unavailable Allergies No known active allergies Medications Medication Sig Dispensed Refills Start Date End Date Status clindamycin (Clindagel) 1 % gel Apply to affected area twice daily 30 g 5 08/28/2022 Active medroxyPROGESTERone (Provera) 10 MG tablet Take 1 Tablet by mouth daily for 360 days. 90 Tablet 3 10/26/2023 Active fluoxetine (PROZAC) 10 MG capsule TAKE 1 CAPSULE BY MOUTH EVERY DAY 90 Capsule 0 03/08/2024 Active hydrOXYzine (ATARAX) 10 MG tablet TAKE 1 TABLET BY MOUTH TWICE A DAY NEEDED FOR ANXIETY 60 Tablet 0 04/25/2024 Active Active Problems Problem Noted Date PCOS (polycystic ovarian syndrome) 07/22 Hidradenitis suppurativa 09/17/2020 Intermittent explosive 08/02/2018 Adjustment disorder with anxiety 018 Active autistic disorder 12/27/2017 Overview: Per notes [facility] PDD (pervasive developmental disorder), active 10/21/2017 Acne vulgaris 03/25/2016 Childhood obesity 10/14/2011 Immunizations Name Administration Dates Next Due COVID-19 (Pfizer) 06/26/2021,11/26/2020,11/06/19 21 Covid-19 Bivalent (Pfizer) 07/24/2022 DTaP 10/06/2001, 9,03/12/1998,01/01,1997 Flu (Generic) 04/26/2009 Gardasil 9 (Hpv) 12/04/2015, 6,03/20/2015,03/20 HPV (Gardasil) 03/15/2014 Hepatitis A-2 dose (<19yrs) 12/04/2015,0 12/04/2015,03/20/2015,03/20 Hepatitis B-3 Dose (<19yrs) 03/12/1998, 8,1997 Hib Vaccine,prp-t, Im 12/17/1998, 998,01/01/1998,11/06 Influenza (> 6 Months) 08/16/2017,03/25/2016,03/2015 Influenza Flu (PT Reported) 07/13/2022 Influenza H1N1 Pandemic Flu Vaccine 04/26/2009 Influenza Vaccine-preservati ve Free-quadrivalent 4 Years 05/31/2023,09/17/2020,05/01/2019 Influenza Vaccine-quadrivale nt 4 Years Plus 08/16/2017,03/25/2016,03/20/2015 MMR (Fgpxzlr-Kllki-Xcwjrsn) 10/06/2001, 9 Meningococcal (Menactra) 03/25/2016 Polio (IPV) 10/06/2001,01/01/1998,1997 Polio (OPV) 09/09/1998 Tdap 09/17/2020,09/12/2009 Varicella 12/12/2007,09/09/1998 Family History Medical History Relation Name Comments No Known Problems Father CA Breast Father's side great aunt Dementia Maternal Grandfather [...] file Not on file Not on file Last Filed Vital Signs Vital Sign Reading Time Taken Comments Blood Pressure 116/80 01/04/2024 2:58 PM EDT Pulse 97 01/04/2024 2:58 PM EDT Temperature 36.2 C (97.1 F) 01/04/2024 2:58 PM EDT Respiratory Rate 16 01/04/2024 2:58 PM EDT Oxygen Saturation 98% 01/04/2024 2:58 PM EDT Inhaled Oxygen Concentration - - Weight 104 kg (229 lb 3.2 oz) 01/04/2024 2:58 PM EDT Height 166.4 cm (5' 5.5 ) 01/04/2024 2:58 PM EDT Body Mass Index 37.56 01/04/2024 2:58 PM EDT Plan of Treatment Health Maintenance Due Date Last Done Comments CERVICAL CANCER SCREENING 05/01/2022 05/01/2019 (Ref used) BMI CHECK/ADVISE 07/12/2024 01/04/2024, , 07/09/2023, Additional history exists DEPRESSION SCREENING/FOLLOWUP 07/12/2024, 08/10/2023, 05/18/2023, Additional history exists SOCIAL NEEDS SCREENING 07/12/2024 , 08/28/2022, 09/17/2020 (Completed), Additional history exists Covid-19 Vaccine (2022- 4 season) 2025 07/24/2022, 06/26/2021, 11/26/2020, Additional history exists INFLUENZA (#1) 2025 05/31/2023, 08/2022, 09/17/2020, Additional history exists CHOLESTEROL SCREENING 08/28/2027 08/28/2022 , 09/30/2020, 10/22/2017 BASELINE HEALTH EXAM 18-39 01/03/202901/03, 08/28/2022, 09/30/2020, Additional history exists DTAP/TDAP/TD (8 - Td or Tdap) 09/17/2030 (Completed), 09/17/2020, 09/12/2009, Additional history exists PNEUMOCOCCAL VACCINE FOR HIG H RISK PATIENTS (#1) 2062 Care Teams Plate Printer Relationship Specialty Start Date End Date Danielle Cheng MD [address] [place], [place] [phone] PCP - General Internal Medicine 12/29/21 Michael Castro [address] [place] [address] Specialist Dermatology 01/05/23
--- OUTSIDE RECORDS SUMMARY | 2025-05-18 17:08 | XMS_ITS | Encounter Summary ---
Author Organization [facility] Address [address] [place] [address] Care Team Providers Care Senior Production Supervisor Name Role Phone Nicola Freeman Primary Care Provider Unavail able Mary Case MD Primary Care Provider Jay Michele MD Primary Care Provider Danielle Egan MD Primary Care Prov ider Michael Castro Unavailable Unavailable Encounter Details Date Type Department Care Team Description 10/12/2017 Release of Information Medical Records [address] [place], [place] [id number] Abstract, Provider Social History Tobacco Use Types Packs/Day Years Used Date Smoking Tobacco: Never Assessed Sex Assigned at Date Recorded Not on file Job Start Date Occupation Industry Not on file Not on file Not on file documented as of this encounter Plan of Treatment Not on file documented as of this encounter Visit Diagnoses Not on filedocumented in this encounter Care Teams Senior Production Supervisor Relationship Specialty Start Date End Date Nicola Freeman PCP - General Pediatrics 07/20/17 10/18/17 Mary Case MD PCP - General Internal Medicine 10/19/17 02/27/21 Jay Raman MD PCP - General Internal Medicine 02/28/21 12/28/21 Danielle Cheng MD [address] [place], [place] [phone] PCP - General Internal Medicine 12/29/21 Michael Castro [address] [place], [place] [phone] Specialist Dermatology 01/05/23 documented as of this encounter
--- OUTSIDE RECORDS SUMMARY | 2025-05-18 17:08 | XMS_ITS | Encounter Summary ---
Author Organization [facility] Address [address] [place] [address] Care Team Providers Care Warehouse Technician Name Role Phone Dnaielle Cheng MD Primary Care Prov ider Michael Castro Unavailable Unavailable Reason for Visit * Reason Comments E-prescribe Rx Request Encounter Details Date Type Department Care Team Description 03/08/2024 Refill Adult Medicine [facility] [address] [place] [id number] Danielle Cheng MD [address] [place] [phone] E-prescribe Rx Request Social History Tobacco Use [...] encounter Miscellaneous Notes * Telephone Encounter - Shadia Love M.A. - 03/08/2024 3:09 PM EDT Rx sent to pharmacy as requested * Telephone Encounter - Hilaria Castanon M.A. - 03/08/2024 9:59 AM EDT Lab Results Component Value Date NA 137 08/28/2022 K 4.0 08/28/2022 CO2 28 08/28/2022 CL 103 08/28/2022 BUN 12 08/28/2022 CREAT 0.80 08/28/2022 GLU 95 08/28/2022 CA 9.7 08/28/2022 GFR 105 08/28/2022 Pending appt 07/10/24 Last appt 01/04/24 * Telephone Encounter - Claudette Evans - 03/08/2024 7:51 AM EDT Patient would like script to be: E-PRESCRIBED/FAXED TO PHARMACY WHEN WAS THE PATIENT'S LAST APPOINTMENT IN ADULT MEDICINE? 01/04/24 WHEN WAS THE LAST TIME THE PATIENT SAW THEIR PCP? 02/03/23 Does patient have an upcoming appointment? Yes 07/10/24 (THE MEDICATION REQUESTED IS ON THE MED LIST ABOVE) All of the medications requested were on the CURRENT MEDS list Did you check the Pharmacy information above?: YES Patient wants: 90 -day supply Is this a mail order prescription request ? NO If the refill is from a FAXED refill request what is the RX # listed on the fax? N/A Patients current insurance carrier is: Payor: [facility] / Plan: [facility] / Product Type: MEDICAID RISK documented in this encounter Plan of Treatment Not on file documented as of this encounter Visit Diagnoses Not on filedocumented in this encounter Care Teams Warehouse Technician Relationship Specialty Start Date End Date Danilele Cheng MD [address] [place] [phone] PCP - General Internal Medicine 12/29/21 Michael Castro [address] [place] [phone] Specialist Dermatology 01/05/23 documented as of this encounter
--- OUTSIDE RECORDS SUMMARY | 2025-05-18 17:08 | XMS_ITS | Encounter Summary ---
Author Organization [facility] Address [address] [place] [address] Care Team Providers Care Trademark Attorney Name Role Phone Danielle Cheng MD Primary Care Prov ider Michael Castro Unavailable Unavailable Encounter Details Date Type Department Care Team Description 01/05/2023 Orders Only Adult Medicine [address] [address] Danielle Cheng MD [address] [place] [address] [id number] Social History Tobacco Use Types Packs/Day Years Used Date Smoking Tobacco: Never Smokeless Tobacco: Never Alcohol Use Standard Drinks/Week Comments No 0 (1 standard drink = 0.6 oz pur e alcohol) Sex Assigned at Date Recorded Not on file Job Start Date Occupation Industry Not on file Not on file Not on file COVID-19 Exposure Response Date Recorded In the last 10 days, have yo u been in contact with someone who was confirmed or suspected to have Coronavirus/COVID-19? No / Unsure 01/05/2023 10:37 AM EDT documented as of this encounter Plan of Treatment Not on file documented as of this encounter Visit Diagnoses Not on filedocumented in this encounter Care Teams Trademark Attorney Relationship Specialty Start Date End Date Danielle Cheng MD [address] [place] [address] PCP - General Internal Medicine 12/29/21 Michael Castro [address] [place] [address] Specialist Dermatology 01/05/23 documented as of this encounter
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
--- OUTSIDE RECORDS SUMMARY | 2025-05-18 17:08 | XMS_ITS | Encounter Summary ---
Author Organization [facility] Address [address] [place] [address] Care Team Providers Care Brake Coupler Dinkey Name Role Phone Danielle Cheng MD Primary Care Prov ider Michael Castro Unavailable Unavailable Reason for Visit * Reason Comments E-prescribe Rx Request Encounter Details Date Type Department Care Team Description 10/11/2023 Refill OBGYN - [place] [address] [place], [place] [phone] Nicol Mckee CNM [address] [place] [address] E-prescribe Rx Request Social History Tobacco Use [...] encounter Miscellaneous Notes * Telephone Encounter - Tamela Willis - 10/11/2023 11:11 AM EDT WHEN WAS THE PATIENTS LAST ANNUAL FIBRE COMPOSITE TECHNICIAN EXAM? No AG on file Does patient have an upcoming appointment? Yes 10/26/23 (THE MEDICATION REQUESTED IS ON THE MED LIST ABOVE) Did you check the Pharmacy information above?: YES Indicate how soon the patient needs the script: BY THE END OF THE DAY Patient would like script to be: E-PRESCRIBED/FAXED TO PHARMACY Is the doctor here today?: YES Can the message wait until the doctor returns?: NO Has the patient been told that the prescription will not be filled until the end of the day? NO Payor: [facility] FFS / Plan: [facility] [employer] / Product Type: MEDICAID RISK documented in this encounter Plan of Treatment Not on file documented as of this encounter Visit Diagnoses Not on filedocumented in this encounter Care Teams Brake Coupler Dinkey Relationship Specialty Start Date End Date Danielle Cheng MD [address] [place] [address] PCP - General Internal Medicine 12/29/21 Michael Castro [address] [place] [address] Specialist Dermatology 01/05/23 documented as of this encounter
[2025-05-18 17:09] VITALS: BP 121/67; PULSE 94; RESP 18; TEMP 36.4; O2SAT 97
== END 2025-05-18 17:10 | disposition home or self-care (01) ==
PROVIDERS: Emergency Provider Emergency Medicine Emergency Medical Services; PCP Internal Medicine
DX: N61.1 Abscess of the breast and nipple (principal); Z79.899 Other long term (current) drug therapy
CPT/HCPCS: 99282

== ENCOUNTER 2025-05-25 16:58 | Emergency (ER) | payer OTHER, SELFPAY ==
--- NOTE | 2025-05-25 17:19 | ED_ITS ---
HPI - General Adult General Chief complaint: Skin/Abscess/Foreign Body Stated complaint: BACTERIA INFECTION Time Seen by Provider: 05/25/25 19:49 Source: patient, RN notes reviewed and old records reviewed Mode of arrival: ambulatory Limitations: no limitations History of Present Illness ED Provider: Kedar LAWRENCE narrative: 29-year-old female with a history of intellectual disability presents for evaluation of a left breast abscess. The patient was initially seen here on 05/17/2025, she was seen here twice the following day for the same issue. She was referred to outpatient General surgery for follow up of a breast abscess. The patient's mother reports that she canceled the appointment because I did not want the patient to have surgery. She has been taking both antibiotics as prescribed. Per the patient and her mother, the abscess has nearly completely resolved. She presents today due to ?the breast was itchy. ? The patient reports that her pain has improved greatly She denies any fevers or chills Related Data Home Medications ?Medication ?Instructions ?Recorded ?Confirmed fluoxetine 10 mg capsule 10 mg PO DAILY 12/28/2412/11 medroxyprogesterone 10 mg tablet 10 mg PO DAILY 01/01/25 Previous Rx's ?Medication ?Instructions ?Recorded albuterol sulfate 90 mcg/actuation 2 puff inhalation Q 4-6H PRN 12/28/24 aerosol inhaler shortness of breath or wheez ing 10 days #6.7 grams prednisone 20 mg tablet 20 mg PO DAILY #10 tabs 12/11 10/03 cefadroxil 500 mg capsule 500 mg PO BID 7 days #14 cap s 05/17/25 sulfamethoxazole 800 1 tab PO Q12H 7 days #14 tab s 05/17/25 mg-trimethoprim 160 mg tablet (Bactrim DS) Allergies Allergy/AdvReac Type Severity Reaction Status Date / Time No Known Allergies Allergy Verified 05/25/25 17:22 Review of Systems 2 Constitutional: Constitutional: Denies body ache(s), Denies chills, Denies fever(s) and Denies headache(s) Eyes: Eyes: Denies blurry vision ENT: Denies vertigo, Denies dizziness and Denies headache(s) Cardiovascular: Cardiovascular: Denies chest pain and Denies dyspnea on exertion Respiratory: Respiratory: Denies cough and Denies dyspnea on exertion Gastrointestinal: Gastrointestinal: Denies abdominal pain and Denies nausea Integumentary/Breasts: Skin/Breast: Reports pruritus, Reports erythema and Reports rash Neurologic: Denies vertigo, Denies dizziness and Denies headache(s) [facility] Past Medical History Medical History Wheezing on auscultation Cough Autism spectrum Social History Social History Alcohol intake: never Patient Tobacco Use Status: Never used Tobacco Smoked in Last 30 Days: No Use of substances other than those prescribed or required for medical reasons: No Advance Directives: No Advance Directives Information Provided: No Physical Exam ED Vital Signs: Vital Signs - 24 hr 05/25/25 17:20 05/25/25 19:50 05/25/25 20:17 Temperature 97.5 F 98.1 F 98.1 F Pulse Rate 81 71 71 Respiratory Rate 18 18 18 Blood Pressure 120/58 L 118/72 118/72 Pulse Oximetry 99 98 98 Oxygen Delivery Method Room Air Room Air Room Air BMI result Body Mass Index 39.3 Const General: healthy appearing, comfortable, no acute distress, alert and awake Nutritional Appearance: well nourished Orientation/consciousness: patient oriented x3 HENMT Head: Yes normocephalic and Yes atraumatic Eyes Eyelids: Yes eyelids normal Conjunctivae: conjunctivae normal Sclerae: sclerae normal Corneas: corneas normal Pupils: Equal, round and reactive pupils present EOM: EOMs intact bilaterally Neck Neck: Yes full ROM Resp Effort & Inspection: normal respiratory effort, able to speak in complete sentences and not labored Skin Other: The patient appears to have a significant improvement in her left breast cellulitis compared to previous images. There is some faint erythema and a healing ulceration to the inferior aspect of the left breast. There was no fluctuance, no induration, the areas nontender. General skin exam: elasticity normal Neuro General: patient oriented x3 Cranial nerves: Yes Equal, round and reactive pupils present and Yes Bilaterally intact EOM present Cognition (Neuro): normal cognition Extrem Other: Moving all extremities well without any obvious deformities Course Course Course Narrative: This is a rapid medical exam performed by Jo Carroll NP: Additional HPI, ROS, PE not included below will be deferred to primary provider. Patient is a 29y/o F with intellectual disability presenting with mother who reports that patient developed itching under left breast this morning. Seen here on 05/18 for abscess to same area. Still completing abx. Having clear drainage. Mom states she did not follow up with surgery because she does not want patient to have surgery. Explained to mom in triage that following up with surgery does not necessarily entail/guarantee surgery. Area not visualized in triage due to privacy concerns. Plan: labs Medical Decision Making Medical Decision Making [facility] Narrative: 29-year-old female presents for evaluation of a wound check. She was initially seen here 8 days ago for left breast abscess. The area of cellulitis and abscess appears to be healing extremely well. There is some faint erythema, no purulence. The patient's symptoms have improved she has a very minimal pain, nontender on palpation. She has no fevers. Her leukocytosis has resolved still has a few days of antibiotics left which I encouraged her mother to make sure the patient is taking. I still feel the patient should follow up with general surgery I discussed with the patient's mother that just because she follows up in the office does not mean the patient will have to have surgery. I explained that we could follow up will help ensure that the patient's wounds heal. The patient can again safely be discharged from the emergency department, return precautions were given Differential Diagnosis Differential Diagnoses: The differential diagnosis associated with the presentation includes Cellulitis Abscess Breast abscess Medication noncompliance Sepsis Lab Data [facility] Lab Attestation statement: I reviewed the patient's lab results. No leukocytosis or anemia. Normal platelet count. No electrolyte abnormalities warranting intervention 05/25/25 17:26 05/25/25 17:26 Labs: Lab Results 05/25/25 Range/Units 17:26 WBC 10.5 (4.8-10.8) X10*3/uL RBC 4.57 (4.20-5.50) X10*6/uL Hgb 14.2 (12.0-16.0) g/dl Hct 39.9 (37.0-47.0) % MCV 87.3 (80.0-98.0) fL MCH 31.1 (27.0-33.0) pg MCHC 35.6 H (31.0-35.0) g/dl RDW 12.0 (11.0-16.0) % Plt Count 309 (160-400) X10*3/uL MPV 9.8 (9.4-12.3) fL Immature Gran % (Auto) 0.4 (0.0-0.4) % Neut % (Auto) 52.2 (45-73) % Lymph % (Auto) 38.7 (20-40) % [place] % (Auto) 6.1 (2-11) % Eos % (Auto) 2.1 (0-4) % Baso % (Auto) 0.5 (0-2) % Lymph # (Auto) 4.1 (1.2-4.9) X10*3/uL [place] # (Auto) 0.6 (0.1-1.2) X10*3/uL Eos # (Auto) 0.2 (0.0-0.4) X10*3/uL Baso # (Auto) 0.1 (0.0-0.2) X10*3/uL Abs Immat Gran (auto) 0.04 H (0.00-0.03) X10*3/uL Absolute Neuts (auto) 5.5 (2.0-8.3) x10*3/uL Absolute Nucleated RBC 0.000 (0.0-0.012) X10*3/uL Nucleated RBC % (auto) 0.0 (0.0-0.2) /100WBC ESR 15 (0-20) MM/HR Sodium 140 (135-145) mmol/L Potassium 4.4 (3.3-5.1) mmol/L Chloride 106 (96-108) mmol/L Carbon Dioxide 25 (22-29) mmol/L Anion Gap 13 (12-20) BUN 11 (9-16) mg/dL Creatinine 0.78 (0.5-1.4) mg/dL Estim Creat Clear Calc 128.3 Estimated GFR > 60 Random Glucose 90 (60-115) mg/dL Calcium 9.3 (8.4-10.2) mg/dL Total Bilirubin 0.7 (0.0-1.0) mg/dL AST 21 (5-31) U/L ALT 31 (0-31) U/L Alkaline Phosphatase 39 (39-117) U/L C-Reactive Protein 0.21 (< or = 0.50) mg/dL Total Protein 7.7 (6.5-8.0) g/dL Albumin 4.3 (3.5-5.0) g/dL Discharge Plan Discharge Clinical Impression: Abscess of skin or subcutaneous tissue Patient Disposition: Home, Self-Care Instructions: Abscess (ED) Additional Instructions: Flavia infection seems to be healing quite well. I recommend that you continue the antibiotics as prescribed. You may also benefit from warm compresses. In his still important to follow up with the general surgeon, just because you see the office does not mean that she will need surgery They will help make sure that her infection improves Return for new or worsening symptoms Prescriptions: No Action sulfamethoxazole-trimethoprim [Bactrim DS] 800-160 mg tablet 1 tab PO Q12H 7 Days Qty: 14 0RF cefadroxil 500 mg capsule 500 mg PO BID 7 Days Qty: 14 0RF medroxyprogesterone 10 mg tablet 10 mg PO DAILY fluoxetine 10 mg capsule 10 mg PO DAILY albuterol sulfate 90 mcg/actuation HFA aerosol inhaler 2 puff inhalation Q4-6H PRN (Reason: shortness of breath or wheezing) 10 Days Qty: 6.7 0RF prednisone 20 mg tablet 20 mg PO DAILY Qty: 10 0RF Referrals: [facility] General Surgeons [Provider Group, General Surgery] Referral Note: healing breast abscess, follow up Interventions: ED Discharge Assessment Last Done: 05/25/25 20:17 Print Language: Lithuanian
[2025-05-25 17:20] VITALS: BP 120/58; PULSE 81; RESP 18; TEMP 36.4; O2SAT 99; BMI 39.3
[2025-05-25 17:45] LABS: MANUAL DIFF FLAG NO
[2025-05-25 17:50] LABS: Hematocrit 39.9 % (37.0-47.0); Hemoglobin 14.2 g/dl (12.0-16.0); Imm Gran Abs Auto 0.04 X10*3/uL (0.00-0.03); Imm Gran Pct Auto 0.4 % (0.0-0.4); Lymphocytes Absolute Auto 4.1 X10*3/uL (1.2-4.9); Mean Corpuscular HGB Conc 35.6 g/dl (31.0-35.0); Mean Corpuscular Hemoglobin 31.1 pg (27.0-33.0); Mean Corpuscular Volume 87.3 fL (80.0-98.0); NRBC Abs Auto 0.000 X10*3/uL (0.0-0.012); NRBC Pct Auto 0.0 /100WBC (0.0-0.2); Platelet Count 309 X10*3/uL (160-400); Red Blood Count 4.57 X10*6/uL (4.20-5.50); White Blood Count 10.5 X10*3/uL (4.8-10.8)
[2025-05-25 18:00] LABS: Alanine Aminotransferase 31 U/L (0-31); Albumin Level 4.3 g/dL (3.5-5.0); Alkaline Phosphatase 39 U/L (39-117); Anion Gap 13 (12-20); Aspartate Amino Transferase 21 U/L (5-31); Blood Urea Nitrogen 11 mg/dL (9-16); Calcium 9.3 mg/dL (8.4-10.2); Carbon Dioxide 25 mmol/L (22-29); Chloride 106 mmol/L (96-108); Creatinine Clr Calc Pharmacy 128.3; Estimated Glomerular Filt Rate > 60; Potassium 4.4 mmol/L (3.3-5.1); Sodium 140 mmol/L (135-145); Total Protein 7.7 g/dL (6.5-8.0)
[2025-05-25 18:49] LABS: Erythrocyte Sedimentation Rate 15 MM/HR (0-20)
[2025-05-25 19:50] VITALS: BP 118/72; PULSE 71; RESP 18; TEMP 36.7; O2SAT 98
[2025-05-25 20:17] VITALS: BP 118/72; PULSE 71; RESP 18; TEMP 36.7; O2SAT 98
== END 2025-05-25 20:50 | disposition home or self-care (01) ==
PROVIDERS: Registered Nurse Emergency; Emergency Provider Student in an Organized Health Care Education/Training Program
DX: N61.1 Abscess of the breast and nipple (principal)
CPT/HCPCS: 36415; 80053; 85025; 85652; 86140; 99283; 99284

== ENCOUNTER 2025-05-31 09:11 | Outpatient (AMB) | payer OTHER, SELFPAY ==
--- NOTE | 2025-05-31 09:14 | A.OFFVIS_ITS ---
Vital Signs 05/31/25 09:24 Height 5 ft 4 in Weight 233 lb BMI 40.0 BP 135/63 Blood Pressure Location Lt brachial Position Sitting Intake Visit Reasons: Lt breast abscess Intake Note: Patient is seen in office for ER follow up visit, following for a left breast abscess. Pt c/o: was given abx at the ER and abscess went down, no prior breast concerns or fm hx of breast cancer District Administrator Required: No Accompanied by: Self / Same As Patient Allergies No Known Allergies Allergy (Verified 05/31/25 09:23) HPI HPI Lt breast abscess: Details: 29 year old female with history of intellectual disability, PCOS here for follow up of left breast abscess and cellulitis. She was initially seen in the ED on 05/17/25 with history of 3-4 days of redness and open wound of the of the left breast. Bedside US was performed which did not show a large, deep fluid collection. She had a very mild leukocytosis at that time without systemic symptoms and was discharged to home on oral antibiotics. They were instructed to follow up with general surgery however they canceled this appointment. She has been since seen multiple times in the ED due to the mother's concern despite her reporting improvement in the breast appearance to the ED providers. They have since finished a 7 day course of bactrim and cefadroxil. The patient denies any breast pain. Mother denies any drainage from the site. She denies fevers, chills, nausea, vomiting, diarrhea. She is eating normally. They report no concerns but the mother remains worried. She reports history of cysts that have secondarily become infected however resolved with just antibiotics. She is not a diabetic. [facility] Medical History Wheezing on auscultation Cough Autism spectrum Social History Alcohol intake: never Patient Tobacco Use Status: Never used Tobacco Review of Systems Const All systems reviewed & are unremarkable except as noted in HPI and below Physical Exam Vital Signs: Last Vital Signs BP 135/63 05/31/25 09:24 BMI result Body Mass Index 40.0 Const General: comfortable, no acute distress, well developed and alert Chest Other: left breast 7-8 o clock with very small 0.5cm cystic appearing skin lesion, no open wound of breast, no drainage noted, she does have some mild persistent erythema and induration of the lower inner quadrant however no fluctuance or mass palpable ; area is nontender ; she has scattered cystic lesions throughout her chest without overlying skin changes Resp Effort & Inspection: normal respiratory effort, able to speak in complete sentences and not tachypneic Skin Other: warm and dry as noted above Neuro General: moves all extremities Assessment & Plan Assessment & Plan (1) Abscess of breast: Code(s): N61.1 - Abscess of the breast and nipple Category: Medical Plan 29 year old female with history of intellectual disability, PCOS here for follow up of left breast abscess and cellulitis. The patient is clinically appearing well and there is only very mild residual cellulitic changes without an open wound or any fluctuance on exam to suggest underlying abscess. Will prescribe a short course of doxycyline 100mg BID PO. Also recommended good daily hygeine of the area and warm compresses/packs to the area to help reduce the induration. The mother is very anxious and she was reassured the area appears significantly improved (compared to ED images on 05/17/25) and no surgical interevention currently necessary. She can follow up in 1 week to ensure complete resolution or call/return sooner if they develop concerns. Mother comfortable with plan. Medications: New doxycycline hyclate 100 mg PO BID 10 caps 0RF Coding Level of Care Code New Pt Level 3 (81547) Diagnoses Abscess of breast N61.1
[2025-05-31 09:24] VITALS: BP 135/63; BMI 40.0
--- OUTSIDE RECORDS SUMMARY | 2025-05-31 11:46 | XMS_ITS | Encounter Summary ---
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 No AG on file Does patient [...] Payor: [facility] FFS / Plan: [facility] [employer] / Product Type: MEDICAID RISK documented in this encounter Plan of Treatment Not on file documented as of this encounter Visit Diagnoses Not on filedocumented in this encounter Care Teams Shower Maid Relationship Specialty Start Date End Date Danielle Cheng MD [address] [place] [address] PCP - General Internal Medicine 12/29/21 Michael Castro [address] [place] [address] Specialist Dermatology 01/05/23 documented as of this encounter
--- OUTSIDE RECORDS SUMMARY | 2025-05-31 11:46 | XMS_ITS | Encounter Summary ---
Author Organization [facility] Address [address] [place] [address] Care Team Providers Care Field Sales Specialist Name Role Phone Danielle Cheng MD Primary Care Prov ider Michael Castro Unavailable Unavailable Reason for Visit * Reason Onset Date Comments refill request 04/20/2023 fluoxetine (PROZ AC) 10 MG capsule Encounter Details Date Type Department Care Team Description 04/20/2023 Telephone Adult Medicine [address] [address] Danielle Cheng MD [address] [place] [address] [phone] refill request (fluoxetine (PROZAC) 10 MG capsule ) Social History Tobacco Use Types Packs/Day Years [...] encounter Miscellaneous Notes * Telephone Encounter - Nicol Mckeon - 04/21/2023 9:01 AM EDT Telephone Information: Message left for patient that a refill for fluoxetine has been sent to her pharmacy and should be ready for pickling grader * Telephone Encounter - Danielle Godinez MD - 04/20/2023 8:44 PM EDT Prescription sent. * Telephone Encounter - Nate Pires - 04/20/2023 4:03 PM EDT Patient would like script to be: E-PRESCRIBED/FAXED TO PHARMACY When was the patients last office visit in Adult Medicine?: 02/03/2023 When was the last time the patient saw their PCP? Same as above Does patient have an upcoming appointment? Yes 05/31/2023 (THE MEDICATION IS NOT ON THE MED LIST AND IS IDENTIFIED BELOW): {MED LIST:69489) Med name: fluoxetine (PROZAC) Dosage: 10 MG capsule # of tablets: 90 Capsule Local pharmacy with request for 90 -day supply Instructions: Take 1 Capsule by mouth daily. - Oral Did you check the pharmacy information above?: YES Patients current insurance carrier: Payor: [facility] Global Active [facility] FFS / Plan: [facility] [employer]Original / Product Type: MEDICAID RISK documented in this encounter Plan of Treatment Not on file documented as of this encounter Visit Diagnoses Not on filedocumented in this encounter Care Teams Field Sales Specialist Relationship Specialty Start Date End Date Danielle Cheng MD [address] [place] [address] PCP - General Internal Medicine 12/29/21 Michael Castro [address] [place] [address] Specialist Dermatology 01/05/23 documented as of this encounter
--- OUTSIDE RECORDS SUMMARY | 2025-05-31 11:46 | XMS_ITS | Encounter Summary ---
Author Organization [facility] Address [address] [place] [address] Care Team Providers Care Finisher Tailor Apprentice Name Role Phone Jay Raman MD Primary Care Provider Danielle Egan MD Primary Care Prov ider Michael Castro Unavailable Unavailable Reason for Visit * Reason Comments E-prescribe Rx Request Encounter Details Date Type Department Care Team Description 11/04/2021 Refill Adult Medicine [address] [address] Rashmi Garcia PA-C [address] [place] [address] E-prescribe Rx Request Social History Tobacco Use [...] N/A Patients current insurance carrier is: Payor: [employer] FFS / Plan: [employer] / Product Type: MEDICAID RISK documented in this encounter Plan of Treatment Not on file documented as of this encounter Visit Diagnoses Not on filedocumented in this encounter Care Teams Finisher Tailor Apprentice Relationship Specialty Start Date End Date Jay Raman MD PCP - General Internal Medicine 02/28/21 12/28/21 Danielle Cheng MD [address] [place] [address] PCP - General Internal Medicine 12/29/21 Michael Castro [address] [place] [id number] Specialist Dermatology 01/05/23 documented as of this encounter
--- OUTSIDE RECORDS SUMMARY | 2025-05-31 11:46 | XMS_ITS | Encounter Summary ---
Author Organization [facility] Address [address] [place] [address] Care Team Providers Care Forest Fire Officer Name Role Phone Nicola Freeman Primary Care Provider Unavail able Mary Case MD Primary Care Provider Jay Michele MD Primary Care Provider Danielle Egan MD Primary Care Prov ider Michael Castro Unavailable Unavailable Encounter Details Date Type Department Care Team Description 10/12/2017 Release of Information Medical Records [address] [place], [place] [id number] Abstract, Provider Social History Tobacco Use Types Packs/Day Years Used Date Smoking Tobacco: Never Assessed Sex Assigned at Date Recorded Not on file Job Start Date Occupation Industry Not on file Not on file Not on file documented as of this encounter Plan of Treatment Not on file documented as of this encounter Visit Diagnoses Not on filedocumented in this encounter Care Teams Forest Fire Officer Relationship Specialty Start Date End Date Nicola Freeman PCP - General Pediatrics 07/20/17 10/18/17 Mary Case MD PCP - General Internal Medicine 10/19/17 02/27/21 Jay Raman MD PCP - General Internal Medicine 02/28/21 12/28/21 Danielle Cheng MD [address] [place], [place] [id number] PCP - General Internal Medicine 12/29/21 Michael Castro [address] [place], [place] [id number] Specialist Dermatology 01/05/23 documented as of this encounter
--- OUTSIDE RECORDS SUMMARY | 2025-05-31 11:46 | XMS_ITS | Encounter Summary ---
Author Organization [facility] Address [address] [place] [address] Care Team Providers Care Inlayer Name Role Phone Jay Raman MD Primary Care Provider Danielle Egan MD Primary Care Prov ider Michael Castro Unavailable Unavailable Reason for Visit * Reason Onset Date Comments APPOINTMENT 11/05/2021 Encounter Details Date Type Department Care Team Description 11/05/2021 Telephone Adult Medicine [address] [address] Jay Raman MD APPOINTMENT Social History Tobacco Use Types Packs/Day Years [...] encounter Miscellaneous Notes * Telephone Encounter - Estefanía Anna - 11/11/2021 11:08 AM EDT L/m for pt call back make future appt. * Telephone Encounter - Osmany Gan M.A. - 11/05/2021 2:52 PM EDT Pt nds to schedule appt for rx refills. FYI to mechanotherapist staff. documented in this encounter Plan of Treatment Not on file documented as of this encounter Visit Diagnoses Not on filedocumented in this encounter Care Teams Inlayer Relationship Specialty Start Date End Date Jay Raman MD PCP - General Internal Medicine 02/28/21 12/28/21 Danielle Cheng MD [address] [place] [id number] PCP - General Internal Medicine 12/29/21 Michael Castro [address] [place] [id number] Specialist Dermatology 01/05/23 documented as of this encounter
--- OUTSIDE RECORDS SUMMARY | 2025-05-31 11:47 | XMS_ITS | Clinical Summary ---
Author Organization [facility] Address [address] [place] [address] Care Team Providers Care Investigative Research Specialist Name Role Phone Danielle Cheng MD [...] Vaccine-quadrivale nt 4 Years Plus 08/16/2017,03/25/2016,03/20/2015 MMR (Xmuorwo-Fwgjk-Evhffli) 10/06/2001, 9 Meningococcal (Menactra) 03/25/2016 Polio (IPV) [...] H RISK PATIENTS (#1) 2062 Care Teams Investigative Research Specialist Relationship Specialty Start Date End Date Danielle Cheng MD [address] [place], [place] [phone] PCP - General Internal Medicine 12/29/21 Michael Castro [address] [place] [address] Specialist Dermatology 01/05/23
== END 2025-05-31 09:39 | disposition home or self-care (01) ==
LOC: HO.HGS 09:11
PROVIDERS: Visit Provider Physician Assistant Surgical
DX: N61.1 Abscess of the breast and nipple (principal)
CPT/HCPCS: 99203

== ENCOUNTER → 2025-05-31 09:11 | Outpatient (BNVA) | payer OTHER, SELFPAY | PROVIDERS: Visit Provider Physician Assistant Surgical | DX: N61.1 Abscess of the breast and nipple (principal) | CPT/HCPCS: 99202 ==

== ENCOUNTER 2025-06-06 08:20 | Outpatient (AMB) | payer OTHER, SELFPAY ==
--- NOTE | 2025-06-06 08:26 | A.OFFVIS_ITS ---
Vital Signs 06/06/25 08:36 Height 5 ft 4 in Weight 234 lb 2 oz BMI 40.2 BP 160/91 H Blood Pressure Location Rt brachial Position Sitting Pulse 81 Intake Visit Reasons: l brst abscess seen in ER Intake Note: abscess has cleared compared to last visit, is done with the abx, Accompanied by: Mother Allergies No Known Allergies Allergy (Verified 06/06/25 08:36) HPI HPI l brst abscess seen in ER: Details: 29-year-old female here for a follow up from the ER for a left breast abscess. He apparently had been to the ER twice this month because of a left breast abscess. She had been on oral antibiotics and this seemed to have improved significantly. The mother describes that around that time about 2-3 weeks ago, she had this area of swelling and redness underneath the left breast with some scanty discharge. This appears to have resolved already. She says that there has been no drainage anymore and that the redness has improved significantly. She has completed her course of antibiotics. She has known intellectual disability. [facility] Medical History PCOS (polycystic ovarian syndrome) Morbid obesity Wheezing on auscultation Cough Autism spectrum Social History Alcohol intake: never Patient Tobacco Use Status: Never used Tobacco Review of Systems Const Denies chills and Denies fever(s) Card Denies chest pain, Denies dyspnea and Denies dyspnea on exertion Resp Denies cough, Denies dyspnea and Denies dyspnea on exertion GI Denies hematochezia and Denies change in bowel habits Musc Reports back pain and Reports limited range of motion Neuro Denies focal weakness Psych Denies depression and Denies mood swings Physical Exam Const Other: Morbidly obese, answers simple questions, has some uncontrolled hand movements General: comfortable and no acute distress Orientation/consciousness: patient oriented x3 Neck Neck: Yes no lymphadenopathy Chest Other: On the inferior surface of the left breast is note of mild residual induration without any fluctuance, no significant redness, no discharge Resp Auscultation: clear to auscultation bilaterally Cardio Rhythm: regular rhythm GI Palpation (GI): Soft to palpation, nontender and no guarding Neuro General: patient oriented x3 Assessment & Plan Assessment & Plan (1) Abscess of breast: Code(s): N61.1 - Abscess of the breast and nipple Category: Medical Plan: This seemed to have resolved with oral antibiotics. This may have been secondary to an epidermal cyst or from irritation in the area due to moisture similar to intertrigo There is no surgical intervention necessary at this time. I did explain to the mother that the symptoms may recur in the future and there is always a small possibility that she may require I and D. She can otherwise follow up on a p.r.n. basis. Coding Level of Care Code New Pt Level 3 (32192) Diagnoses Abscess of breast N61.1
[2025-06-06 08:36] VITALS: BP 160/91; PULSE 81; BMI 40.2
--- OUTSIDE RECORDS SUMMARY | 2025-06-06 08:41 | XMS_ITS | Encounter Summary ---
Author Organization [facility] Address [address] [place] [address] Care Team Providers Care Aircraft Structural Repairer Name Role Phone Danielle Cazares MD Primary Care Prov ider Encounter Details Date Type Department Care Team (Late st Contact Info) Description 05/08/2025 Telephone Adult Medicine [facility] [address] [place], [place] [phone] Danielle Cazares MD [address] [place], [place] Social History Tobacco Use Types Packs/Day [...] care for your loved ones. For example, early childhood worker or elderly care for an older adult? [...] 2:00 PM EDT Office Visit Adult Medicine [address] [phone] Danielle Cazares MD [address] [place] [address] documented as of this encounter Visit Diagnoses Not on filedocumented in this encounter Care Teams Aircraft Structural Repairer Relationship Specialty Start Date End Date Danielle Cazares MD [address] [place] [phone] PCP - General Internal Medicine 09/13/24 documented as of this encounter
--- OUTSIDE RECORDS SUMMARY | 2025-06-06 08:41 | XMS_ITS | Encounter Summary ---
Author Organization [facility] Address [address] [place] [address] Care Team Providers Care Resident Medical Officer Name Role Phone Danielle Cazares MD Primary Care Prov ider Reason for Visit * Reason Onset Date Comments returnng a call back 05/15/2025 Encounter Details Date Type Department Care Team ([facility] st Contact Info) Description 05/15/2025 Telephone Adult Medicine [address] [phone] Danielle Cazares MD [address] [place], [place] Social History Tobacco Use Types Packs/Day [...] for your loved ones. For example, child nurse or elderly care for an older adult? [...] 2:00 PM EDT Office Visit Adult Medicine [address] [phone] Danielle Cazares MD [address] [place] [address] documented as of this encounter Visit Diagnoses Not on filedocumented in this encounter Care Teams Resident Medical Officer Relationship Specialty Start Date End Date Danielle Cazares MD [address] [place] [address] PCP - General Internal Medicine 09/13/24 documented as of this encounter
--- OUTSIDE RECORDS SUMMARY | 2025-06-06 08:41 | XMS_ITS | Clinical Summary ---
Author Organization [facility] [address] [facility] Address [address] [place] [address] Phone Care Team Providers Care Burglar Alarm Superintendent Name Role Phone Danielle Cazares MD Primary [...] Plan (07/10/2024 9:39 AM EST): Managed by SENIOR RESEARCH CONSULTANT. Hidradenitis suppurativa 09/17/2020 Assessment & Plan (07/10/2024 9:39 AM EST): Well-controlled, no recent exacerbations. Continue clindamycin. Intermittent explosive 08/02/2018 Adjustment disorder with anxiety 06/23/2018 Active autistic disorder 12/27/2017 Overview (05/23/2024): Per [facility] Assessment & Plan (07/10/2024 9:39 AM EST): Good overall performance. She attends a [facility] 5 days a week. Takes fluoxetine and hydroxyzine every day. Needs a QuantiFERON for her program. 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 Acne vulgaris 03/25/2016 Childhood obesity 10/14/2011 Encounters Date Type Department Care Team Description 05/15/2025 Telephone Adult Medicine [address] [phone] Danielle Cazares MD 05/14/2025 Telephone Adult Medicine [address] [phone] Danielle Cazares MD 05/08/2025 Telephone Adult Medicine [address] [phone] Danielle Cazares MD 05/08/2025 Telephone Adult Medicine [address] [phone] Danielle Cazares MD 04/30/2025 Telephone Adult Medicine [address] [phone] Danielle Cazares MD from Last 3 Months [...] Bivalent, Or iginal + Ba.1 (Non-[place] Trademark COMIRNATEndomondo Bivalent) 07/24/2022 Tdap Tetanus diptheria acell ular [...] for your loved ones. For example, child day care teacher or elderly care for an older adult? [...] 2:00 PM EDT Office Visit Adult Medicine [facility] [address] [place], [place] [phone] Danielle Cazares MD [address] [place], [place] Health Maintenance Due Date Last Done [...] Most Recently Relevant to Health Maintenance Insurance [employer] Care Teams Burglar Alarm Superintendent Relationship Specialty Start Date End Date Danielle Cazares MD [address] [place] [phone] PCP - General Internal Medicine 09/13/24
== END 2025-06-06 08:54 | disposition home or self-care (01) ==
LOC: HO.HGS 08:21
PROVIDERS: Visit Provider Surgery
DX: N61.1 Abscess of the breast and nipple (principal)
CPT/HCPCS: 99203

== ENCOUNTER → 2025-06-06 08:20 | Outpatient (BNVA) | payer OTHER, SELFPAY | PROVIDERS: Visit Provider Surgery | DX: N61.1 Abscess of the breast and nipple (principal) | CPT/HCPCS: 99202 ==